=== PATIENT | male | born 1985 | race Two or more races ===

== ENCOUNTER 2024-11-14 03:19 | Inpatient (IN) | payer MEDICAID, OTHER ==
[~2024-11-14] VITALS: Ht 184.2 cm; Wt 131.0 kg
--- NOTE | 2024-11-14 03:51 | ED.PDOC ---
Musculoskeletal HPI Comments 38-year-old male presents to ER with complaints of left leg pain x3 days. Patient reports he developed sudden of pain/swelling/redness to left leg with associated chills 3 days ago. He reports 7/10 pain to left lower leg without radiation. Denies use of medications for current symptoms presents to ER ambulatory on arrival, with steady gait, in no distress with extensive swelling/erythema/TTP noted to left lower leg. Denies fever, shortness of b reath, chest pain, skin drainage, falls/injury or any further symptoms/complaints Chief Complaint: Lower Extremity Time Seen by MD: 03:38 Primary Care Provider: UNKNOWN Reviewed Notes: Nurses Notes, Medications, Allergies Allergies: Coded Allergies: NO KNOWN ALLERGIES (Unverified , 11/14/24) Information Source: Patient Mode of Arrival: Ambulatory Last Tetanus: Unknown Past Medical History PAST MEDICAL HISTORY: Denies Surgical History (Other): Left arm surgery Family History Family History: Unknown Social History Smoker: Non-Smoker Alcohol: Occasionally Drugs: Marijuana Lives In: Home Constitutional: denies: chills, diaphoresis, fatigue, fever, malaise, sweats, weakness, others EENTM: denies: blurred vision, double vision, ear bleeding, ear discharge, ear drainage, ear pain, ear ringing, eye pain, eye redness, hearing loss, mouth pain, mouth swelling, nasal discharge, nose bleeding, nose congestion, nose pain, photophobia, tearing, throat pain, throat swelling, voice changes, others Respiratory: denies: cough, hemoptysis, orthopnea, SOB at rest, shortness of breath, SOB with excertion, stridor, wheezing, others Cardiovascular: denies: chest pain, dizzy spells, diaphoresis, Dyspnea on exertion, edema, irregular heart beat, left arm pain, lightheadedness, palpitations, PND, syncope, others Gastrointestinal: denies: abdomen distended, abdominal pain, blood streaked bowels, constipated, diarrhea, dysphagia, difficulty swallowing, hematemesis, melena, nausea, poor appetite, poor fluid intake, rectal bleeding, rectal pain, vomiting, others Genitourinary: denies: burning, dysuria, flank pain, frequency, hematuria, incontinence, penile discharge, penile sore, pain, testicle pain, testicle swelling, urgency, others Neurological: denies: dizziness, fainting, headache, left sided numbness, left sided weakness, numbness, paresthesia, pre-existing deficit, right sided numbness, right sided weakness, seizure, speech problems, tingling, tremors, weakness, others Musculoskeletal: denies: back pain, gout, joint pain, joint swelling, muscle pain, muscle stiffness, neck pain, others Integumetry: reports: others (As stated in HPI) Allergic/Immunocompromised: denies: Difficulty Healing, Frequent Infections, Hives, Itching, others Hematologic/Lymphatic: denies: anemia, blood clots, easy bleeding, easy bruising, swollen glands, others Endocrine: denies: excessive hunger, excessive sweating, excessive thirst, excessive urination, flushing, intolerance to cold, intolerance to heat, unexplained weight gain, unexplained weight loss, others Psychiatric: denies: anxiety, bipolar disorder, depression, hopeless, panic disorder, schizophrenia, sleepless, suicidal, others Physical Exam General Appearance: No Apparent Distress, Obese HEENT: PERRL/EOMI Neck: Full Range of Motion, Non-Tender, Normal Respiratory: Chest Non-Tender, Lungs Clear, No Accessory Muscle Use, No Respiratory Distress, Normal Breath Sounds Cardiovascular: No Murmur, No Gallop, Regular Rate/Rhythm Breast Exam: Deferred Gastrointestinal: NOT DONE Genitalia: Deferred Pelvic: Deferred Rectal: Deferred Extremities: Calf tenderness (TTP/swelling/erythema noted to left calf), Normal capillary refill, Normal range of motion Neurologic: Alert, No Motor Deficits, Normal Affect, Normal Mood, No Sensory Deficits Cerebellar Function: Normal Reflexes: Normal Skin: Dry, Warm, Other (Extensive swelling/erythema/TTP/increased warmth noted to left lower leg. No fluctuance/drainage noted) Peripheral Pulses: 2+ dorsalis pedis (R), 2+ dorsalis pedis (L), 2+ Radial (R), 2+ Radial (L), 2+ Brachial (R), 2+ Brachial (L) Lymphatic: No Adenopathy Was a procedure done? Was a procedure done?: No Sedation Sedation?: No Differential Diagnosis EXT Differential Diagnosis: Deep Vein Thrombosis, Septic, Neurovascular injury X-Ray, Labs, Meds, VS Vital Signs Date Time Temp Pulse Resp B/P (MAP) Pulse Ox O2 Delivery O2 Flow Rate FiO2 11/14/24 06:01 98.7 80 14 154/91 (112) 98 98.7 11/14/24 04:05 Room Air* 0 21 11/14/24 03:30 98.9 87 14 144/98 (113) 97 98.9 Lab Test 11/14/24 03:47 Range/Units White Blood Count 13.2 H 4.4-10.8 10^3/uL Red Blood Count 5.06 4.5-5.90 10^6/uL Hemoglobin 16.4 13.5-17.5 g/dL Hematocrit 46.1 41.0-53.0 % Mean Corpuscular Volume 91.2 80.0-100.0 fL Mean Corpuscular Hemoglobin 32.4 H 28.0-32.0 pg Mean Corpuscular Hemoglobin Concent 35.5 32.0-36.0 g/dL Red Cell Distribution Width 13.5 11.8-14.3 % Platelet Count 153 140-450 10^3/uL Mean Platelet Volume 9.4 6.9-10.8 fL Neutrophils (%) (Auto) 67.7 37.0-80.0 % Lymphocytes (%) (Auto) 20.0 10.0-50.0 % Monocytes (%) (Auto) 10.6 0.0-12.0 % Eosinophils (%) (Auto) 1.3 0.0-7.0 % Basophils (%) (Auto) 0.4 0.0-2.0 % Neutrophils # (Auto) 8.9 H 1.6-8.6 10 ^3/uL Lymphocytes # (Auto) 2.6 0.4-5.4 10 ^3/uL Monocytes # (Auto) 1.4 H 0-1.3 10 ^3/uL Eosinophils # (Auto) 0.2 0-0.8 10 ^3/uL Basophils # (Auto) 0.1 0-0.2 10 ^3/uL Nucleated Red Blood Cells 0.1 % D-Dimer, Quantitative 0.77 H 0.0-0.49 mg/L FEU Sodium Level 137 136-145 mmol/L Potassium Level 4.0 3.5-5.1 mmol/L Chloride Level 106 98-107 mmol/L Carbon Dioxide Level 25 20-31 mmol/L Anion Gap 6 5-15 Blood Urea Nitrogen 16 9-23 mg/dL Creatinine 0.96 0.700-1.30 mg/dL Glomerular Filtration Rate Calc 104 >90 mL/min BUN/Creatinine Ratio 16.7 10.0-20.0 Serum Glucose 147 H 74-106 mg/dL Lactic Acid Level 1.9 0.4-2.0 mmol/L Calcium Level 9.7 8.7-10.4 mg/dL Current Medications Medications (Trade) Dose Ordered Sig/Leslie Route Start Time Stop Time Status Last Admin Clindamycin Phosphate 50 ml @ 50 mls/hr ONCE ONCE IV 11/14/24 03:45 11/14/24 04:44 DC 11/14/24 04:02 Ceftriaxone Sodium 50 ml @ 100 mls/hr ONCE ONCE IV 11/14/24 03:45 11/14/24 04:14 DC 11/14/24 03:57 Diphtheria/ Tetanus/Acell Pertussis (Boostrix T-Dap) 0.5 ml ONCE ONCE IM 11/14/24 03:45 11/14/24 03:49 DC 11/14/24 03:58 PATIENT: ELVA COHN ACCT: [id number] UNIT: [id number] : 1985 LOC: ER ROOM / BED: / AGE / SEX: 38 / M ADM STATUS: REG ER SERVICE [id number] ORDERING PHYSICIAN: SWETA TERRY PROCEDURE(s): LLDVT - LT Lower DVT REASON: left leg pain ORDER NUMBER(s): [id number], ACCESSION NUMBER(s): [id number] Left lower extremity venous duplex Clinical History: left leg pain Comparison: None Technique: Duplex Doppler evaluation of the deep venous system of the left lower extremity from the common femoral vein to the popliteal vein including color Doppler and spectral/pulsed waveform analysis was performed. Findings: The common femoral vein demonstrates appropriate compressibility and waveform variability. There is compressibility/patency of the great saphenous vein at the proximal thigh. The femoral vein demonstrates appropriate compressibility and waveform variability. The deep femoral vein demonstrates appropriate compressibility and waveform variability. The popliteal vein demonstrates appropriate compressibility and waveform variability. There is normal compressibility at the tibioperoneal trunk. Impression: No left femoropopliteal venous thrombosis. Nonspecific prominent lymph node in the left groin measures 1.3 cm. ATED BY: ALON WALLER MD DICTATED DATE/TIME: 11/14/24529 SIGNED BY: ALON WALLER MD SIGNED DATE/TIME: 11/14/24529 CC: CBC reviewed - WBC 13.2 BMP reviewed without any significant abnormalities Lactic acid reviewed - normal Hep-Lock IV ordered Clindamycin 900 mg IV ordered Rocephin 1 g IV ordered Tdap 0.5 mL IM ordered D-dimer reviewed .77 Left lower DVT left lower ultrasound reviewed Patient verbalized understanding and agreeable with current plan of care Patient presents with extensive swelling/erythema/TTP noted to left lower extremity Patient admitted to hospitalist for cellulitis of left lower extremity and need for IV antibiotics Images Reviewed?: Images reviewed and evaluated by me Time of 1ST Reevaluation: 03:42 Reevaluation 1ST: N/A Patient Education/Counseling: Diagnosis, Treatment, Prognosis, Need For Follow Up Family Education/Counseling: No Family Present Sepsis Sepsis Reasesment Focused Exam Orders: Laboratory Tests 11/14/24 03:47: Lactic Acid Level 1.9 Departure 1 Departure Time of Disposition: 05:34 Impression: Primary Impression: Cellulitis of left lower extremity Disposition: 09 ADMITTED INPATIENT Condition: Stable Discharged With: Self Critical Care Note Critical Care Time?: No Stability Stability form required: No Heart Score Heart Score: Heart Score Response (Comments) Value History N/A 0 EKG N/A 0 Age N/A 0 Risk Factors N/A 0 Troponin N/A 0 Total 0 SWETA TERRY Nov 14, 2024 03:50
[2024-11-14] MEDS: cefTRIAXone 1GM/50ML D5W 50 ML IV ONE (03:57)
[2024-11-14] MEDS: TETANUS-DIPTH-ACEL PERTUSSIS 0.5ML SYR Tdap IM ONE (03:58)
[2024-11-14] MEDS: CLINDAMYCIN 900MG IV 50 ML IV ONE (04:02)
[2024-11-14 04:17] LABS: Hematocrit 46.1 % (41.0-53.0); Hemoglobin 16.4 g/dL (13.5-17.5); Mean Corpuscular Hemoglobin 32.4 pg (28.0-32.0); Mean Corpuscular Volume 91.2 fL (80.0-100.0); Nucleated Red Blood Cells % 0.1 %
[2024-11-14 04:31] LABS: Chloride 106 mmol/L (98-107); Potassium 4.0 mmol/L (3.5-5.1); Sodium 137 mmol/L (136-145)
[2024-11-14 04:32] LABS: Anion Gap 6 (5-15); Calcium 9.7 mg/dL (8.7-10.4); Carbon Dioxide 25 mmol/L (20-31)
[2024-11-14 04:37] LABS: BUN/Creatinine Ratio 16.7 (10.0-20.0); Blood Urea Nitrogen 16 mg/dL (9-23)
[2024-11-14 04:48] LABS: Glucose 147 mg/dL (74-106)
--- NOTE | 2024-11-14 05:32 | DVH ---
Left lower extremity venous duplex Clinical History: left leg pain Comparison: None Technique: Duplex Doppler evaluation of the deep venous system of the left lower extremity from the common femor al vein to the popliteal vein including color Doppler and spectral/pulsed waveform analysis was perfo rmed. Findings: The common femoral vein demonstrates appropriate compressibility and waveform variability. There is compressibility/patency of the great saphenous vein at the proximal thigh. The femoral vein demonstrates appropriate compressibility and waveform variability. The deep femoral vein demonstrates appropriate compressibility and waveform variability. The popliteal vein demonstrates appropriate compressibility and waveform variability. There is normal compressibility at the tibioperoneal trunk. Impression: No left femoropopliteal venous thrombosis. Nonspecific prominent lymph node in the left groin measures 1.3 cm.
--- NOTE | 2024-11-14 07:00 | DVHHP2 ---
History of Present Illness Reason for Visit: left leg pain History of Present Illness 38-year-old male no past medical history surgical history left-hand surgery chief complaint patient comes in with left leg pain that has been going on for three days. Patient states since Wednesday he has had some redness did develop he has not seen his primary medical doctor in regards to his redness he has not been prescribed any medications. He did state he has some chills on Wednesday which he felt he had a fever with self-resolved he currently denies any chest pain no shortness with the breath patient denies any recent falling injury. When evaluating patient's labs and imaging from the ED white count was 13.2 othe rwise CBC was unremarkable CMP was unremarkable lactate was 1.9 D-dimer was 0.77 without any shortness of the breath ultrasound was negative for DVT patient was given tetanus ceftriaxone and clindamycin in the ED. With these findings we will admit patient for IV antibiotics Past Medical History Denies medical history Past Surgical History Left-hand surgery Family History Reviewed, non-contributory to the management of this case. Past Social History Patient does admit to drinking daily 3-4 beers everyday last drink was Wednesday he does smoke marijuana occasionally he has been denies any drugs use Review of Systems Constitutional: No: Fever, Chills, Sweats, Weakness, Malaise, Other Eyes: No: Pain, Vision change, Conjunctivae inflammation, Eyelid inflammation, Other, Redness ENT: No: Ear pain, Ear discharge, Nose pain, Nose discharge, Nose congestion, Mouth pain, Mouth swelling, Throat pain, Throat swelling, Other Respiratory: No: Cough, Dry, Shortness of breath, SOB with excertion, Wheezing, Hemoptysis, Pleuritic Pain, Sputum, Wheezing, Other Cardiovascular: No: Chest Pain, Palpitations, Orthopnea, Paroxysmal Noc. Dyspnea, Edema, Lt Headedness, Other Gastrointestinal: No: Nausea, Vomiting, Abdominal Pain, Diarrhea, Constipation, Melena, Hematochezia, Other Genitourinary: No Dysuria, No Frequency, No Incontinence, No Hematuria, No Retention, No Other Musculoskeletal: leg pain; No: other, neck pain, shoulder pain, arm pain, back pain, hand pain, foot pain Skin: No: Rash, Lesions, Jaundice, Bruising, Other Neurological: No: Weakness, Numbness, Incoordination, Change in speech, Con fusion, Seizures, Other Allergies: Coded Allergies: NO KNOWN ALLERGIES (Unverified , 11/14/24) Exam Vital Signs Vital Signs Date Time Temp Pulse Resp B/P (MAP) Pulse Ox O2 Delivery O2 Flow Rate FiO2 11/14/24 06:01 98.7 80 14 154/91 (112) 98 98.7 11/14/24 04:05 Room Air* 0 21 General Appearance: Alert, Oriented X3, Cooperative, No acute distress HEENT: Atraumatic, PERRLA, EOMI, Mucous membr. moist/pink Respiratory: Clear to auscultation, Normal air movement Cardiovascular: Regular rate, Normal S1, Normal S2, No murmurs Abdominal: Normal bowel sounds, Soft, No tenderness, No hepatospenomegaly, No masses Extremities: No clubbing, No cyanosis, No edema, Other (left lower leg with some swelling and erythema no exudates, compartment soft nvi +silt no open wound ) Skin: No rashes, No breakdown, No significant lesion Neuro: Normal gait, Normal speech, Strength at 5/5 X4 ext, Normal tone, Sensation intact, Cranial nerves 3-12 NL Psych/Mental Status: Mental status NL, Mood NL Labs/Xrays Ultrasound negative for DVT I reviewed labs, imaging CT scan abdomen pelvis, EKG and all diagnostic studies on this patient from ED records and the medical chart Labs Test 11/14/24 03:47 Range/Units White Blood Count 13.2 H 4.4-10.8 10^3/uL Red Blood Count 5.06 4.5-5.90 10^6/uL Hemoglobin 16.4 13.5-17.5 g/dL Hematocrit 46.1 41.0-53.0 % Mean Corpuscular Volume 91.2 80.0-100.0 fL Mean Corpuscular Hemoglobin 32.4 H 28.0-32.0 pg Mean Corpuscular Hemoglobin Concent 35.5 32.0-36.0 g/dL Red Cell Distribution Width 13.5 11.8-14.3 % Platelet Count 153 140-450 10^3/uL Mean Platelet Volume 9.4 6.9-10.8 fL Neutrophils (%) (Auto) 67.7 37.0-80.0 % Lymphocytes (%) (Auto) 20.0 10.0-50.0 % Monocytes (%) (Auto) 10.6 0.0-12.0 % Eosinophils (%) (Auto) 1.3 0.0-7.0 % Basophils (%) (Auto) 0.4 0.0-2.0 % Neutrophils # (Auto) 8.9 H 1.6-8.6 10 ^3/uL Lymphocytes # (Auto) 2.6 0.4-5.4 10 ^3/uL Monocytes # (Auto) 1.4 H 0-1.3 10 ^3/uL Eosinophils # (Auto) 0.2 0-0.8 10 ^3/uL Basophils # (Auto) 0.1 0-0.2 10 ^3/uL Nucleated Red Blood Cells 0.1 % D-Dimer, Quantitative 0.77 H 0.0-0.49 mg/L FEU Sodium Level 137 136-145 mmol/L Potassium Level 4.0 3.5-5.1 mmol/L Chloride Level 106 98-107 mmol/L Carbon Dioxide Level 25 20-31 mmol/L Anion Gap 6 5-15 Blood Urea Nitrogen 16 9-23 mg/dL Creatinine 0.96 0.700-1.30 mg/dL Glomerular Filtration Rate Calc 104 >90 mL/min BUN/Creatinine Ratio 16.7 10.0-20.0 Serum Glucose 147 H 74-106 mg/dL Lactic Acid Level 1.9 0.4-2.0 mmol/L Calcium Level 9.7 8.7-10.4 mg/dL SEPSIS Sepsis Screen Date sepsis recognized/suspect: Nov 14, 2024 Time Sepsis recognized/suspect: 329 Recent Procedure: No On Antibiotic Therapy: No Respiratory Rate >20: No Heart Rate >90: No Temp<36 C (96.8 F) or >38.3 C: No SBP <90 or MAP <65 mmHG: No New Acute Mental Status Change: No Is the patient on CPAP, BIPAP,: No Physician Orders Heplock Iv (11/14/24 ) Blood Culture (11/14/24 03:36) Lt Lower Dvt (11/14/24 04:42) Vital Signs Date Time Temp Pulse Resp B/P (MAP) Pulse Ox O2 Delivery O2 Flow Rate FiO2 11/14/24 06:01 98.7 80 14 154/91 (112) 98 98.7 11/14/24 04:05 Room Air* 0 21 11/14/24 03:30 98.9 87 14 144/98 (113) 97 98.9 Laboratory Tests Test 11/14/24 03:47 Lactic Acid Level 1.9 mmol/L (0.4-2.0) White Blood Count 13.2 10^3/uL (4.4-10.8) H Medications Medications Dose Ordered Sig/Leslie Route Start Time Stop Time Status Last Admin Dose Admin Ceftriaxone Sodium 50 ml @ 100 mls/hr ONCE ONCE IV 11/14/24 03:45 11/14/24 04:14 DC 11/14/24 03:57 100 MLS/HR Clindamycin Phosphate 50 ml @ 50 mls/hr ONCE ONCE IV 11/14/24 03:45 11/14/24 04:44 DC 11/14/24 04:02 50 MLS/HR Diphtheria/ Tetanus/Acell Pertussis 0.5 ml ONCE ONCE IM 11/14/24 03:45 11/14/24 03:49 DC 11/14/24 03:58 0.5 ML Assessment/Plan Assessment/Plan acute left leg cellulitis without abscess us negative for dvt cont ceftriaxone ordered morphine as needed for pain elevation to help with swelling acute leukocytosis likely from cellulitis ordered ceftriaxone acute elevation in ddimer likely from infection not likely pe or dvt cont antibiotics for now etoh abuse last drink Wednesday drinks daily no s/s of withdrawals ciwa as needed sw for resources fen/ppx diet ivf no gi ppx since no hx of gerds or gi bleed heparin for now plan admit to medicine for antibiotic treatment Plan discussed with: Patient Date of Service: Nov 14, 2024 Billing Provider: IRINEO TABOR DNP Common Visit Codes: [id number] INP/OBS CARE (HIGH) IRINEO TABOR DNP Nov 14, 2024 07:00
[2024-11-14] MEDS ORDERED: ONDANSETRON HCL 4 MG/2 ML VIAL IV PRN (08:30)
[2024-11-14] MEDS ORDERED: NITROGLYCERIN 0.4 MG SL TAB SL PRN (08:30)
[2024-11-14] MEDS ORDERED: DOCUSATE SOD 100 MG CAP PO PRN (08:30)
[2024-11-14] MEDS ORDERED: MORPHINE SULFATE INJ 2 MG/ml SYRG IV PRN (08:30)
[2024-11-14 08:52] VITALS: RESP 18
[2024-11-14 09:02] VITALS: BP 136/83; PULSE 81; RESP 24; TEMP 98.1; O2SAT 97
[2024-11-14] MEDS: ENOXAPARIN SOD 40 MG/0.4 ML SYRINGE SC SCH (12:46)
[2024-11-14] MEDS: cefTRIAXone 1GM/50ML D5W 50 ML IV SCH (12:47)
[2024-11-14] MEDS: SODIUM CHLORIDE 0.9% 1,000 ML IV SCH (12:47)
[2024-11-14 13:25] VITALS: BP 150/91; PULSE 86; TEMP 98.8; O2SAT 97
[2024-11-14 16:09] VITALS: BP 132/98; PULSE 90; RESP 19; TEMP 97.3; O2SAT 98
[2024-11-14 20:00] VITALS: PULSE 85; RESP 16; O2SAT 98
[2024-11-14 21:00] VITALS: BP 130/83; PULSE 85; RESP 16; TEMP 99.3; O2SAT 98
[2024-11-15] VITALS (8 sets, daily range): BP systolic 124–143; BP diastolic 81–94; PULSE 64–85; RESP 14–18; TEMP 97.7–98.9; O2SAT 98–99
[2024-11-15 05:42] LABS: Hematocrit 45.1 % (41.0-53.0); Hemoglobin 15.8 g/dL (13.5-17.5); Mean Corpuscular Hemoglobin 31.8 pg (28.0-32.0); Mean Corpuscular Volume 90.6 fL (80.0-100.0); Nucleated Red Blood Cells % 0.1 %
[2024-11-15 06:00] LABS: Albumin 4.2 g/dL (3.2-4.8); Alkaline Phosphatase 71 U/L (46-116); Anion Gap 6 (5-15); BUN/Creatinine Ratio 11.1 (10.0-20.0); Blood Urea Nitrogen 10 mg/dL (9-23); Calcium 9.1 mg/dL (8.7-10.4); Carbon Dioxide 27 mmol/L (20-31); Chloride 106 mmol/L (98-107); Potassium 4.3 mmol/L (3.5-5.1); Sodium 139 mmol/L (136-145); Total Protein 6.9 g/dL (5.7-8.2)
[2024-11-15 06:01] LABS: Alanine Aminotransferase 47 U/L (7-40); Bilirubin, Total 0.4 mg/dL (0.2-1.0); Glucose 136 mg/dL (74-106)
--- NOTE | 2024-11-15 17:03 | DVHPN2 ---
Subjective left leg cellulitis improving Reviewed: H&P, Labs Changes from previous H/P or p: No Changes Eyes: No Pain, No Vision change, No Conjunctivae inflammation, No Eyelid inflammation, No Other, No Redness ENT: No Ear pain, No Ear discharge, No Nose pain, No Nose discharge, No Nose congestion, No Mouth pain, No Mouth swelling, No Throat pain, No Throat swelling, No Other Cardiovascular: No Chest Pain, No Palpitations, No Orthopnea, No Paroxysmal Noc. Dyspnea, No Edema, No Lt Headedness, No Other Respiratory: No Cough, No Dry, No Shortness of breath, No SOB with excertion, No Wheezing, No Hemoptysis, No Pleuritic Pain, No Sputum, No Other Gastrointestinal: No Nausea, No Vomiting, No Abdominal Pain, No Diarrhea, No Constipation, No Melena, No Hematochezia, No Other Genitourinary: No Dysuria, No Frequency, No Incontinence, No Hematuria, No Retention, No Other Musculoskeletal: No other, No neck pain, No shoulder pain, No arm pain, No back pain, No hand pain; leg pain; No foot pain Skin: No Rash, No Lesions, No Jaundice, No Bruising, No Other Objective Vitals Vital Signs Date Time Temp Pulse Resp B/P (MAP) Pulse Ox O2 Delivery O2 Flow Rate FiO2 11/15/24 13:00 98.3 68 18 136/86 (103) 98 98.3 11/14/24 20:00 Room Air* 0 21 Intake/Output Intake and Output 11/15/24 07:00 Intake Total 691 ml Balance 691 ml Intake Oral 691 ml # Voids 1 General Appearance: Alert, Oriented X3 Cardiovascular: Regular rate, Normal S1, Normal S2 Medications Current Medications Medications Dose Ordered Sig/Leslie Route Start Time Stop Time Status Last Admin Dose Admin Sodium Chloride 1,000 ml @ 120 mls/hr Q8H20M IV 11/14/24 08:30 11/15/24 01:29 120 MLS/HR Ondansetron HCl 4 mg Q4HP PRN IV 11/14/24 08:30 Docusate Sodium 100 mg BIDPRN PRN PO 11/14/24 08:30 Enoxaparin Sodium 40 mg DAILY SC 11/14/24 10:00 11/15/24 10:26 40 MG Morphine Sulfate 2 mg Q4HPRN PRN IV 11/14/24 08:30 Nitroglycerin 0.4 mg Q5MINP PRN SL 11/14/24 08:30 Ceftriaxone Sodium 50 ml @ 100 mls/hr DAILY@09 IV 11/14/24 09:00 11/15/24 10:26 100 MLS/HR Laboratory Results Laboratory Tests 11/15/24 05:18 Chemistry Test 11/15/24 05:18 Albumin 4.2 g/dL (3.2-4.8) Calcium Level 9.1 mg/dL (8.7-10.4) Total Protein 6.9 g/dL (5.7-8.2) LFT Test 11/15/24 05:18 Alanine Aminotransferase (ALT) 47 U/L (7-40) H Alkaline Phosphatase 71 U/L (46-116) Aspartate Amino Transferase (AST) 24 U/L (13-40) Total Bilirubin 0.4 mg/dL (0.2-1.0) HgA1c, TSH Test 11/15/24 05:18 Hemoglobin A1c 5.7 % A1C (<5.7) Microbiology Microbiology Date/Time Source Procedure Growth Status 11/14/24 03:47 Blood Blood Culture - Preliminary NO GROWTH AFTER 24 HOURS OF INCUBATION. Resulted Assessment/Plan Assessment/Plan acute left leg cellulitis without abscess us negative for dvt cont ceftriaxone ordered morphine as needed for pain elevation to help with swelling acute leukocytosis likely from cellulitis ordered ceftriaxone acute elevation in ddimer likely from infection not likely pe or dvt cont antibiotics for now etoh abuse last drink Wednesday drinks daily no s/s of withdrawals ciwa as needed sw for resources fen/ppx diet ivf no gi ppx since no hx of gerds or gi bleed heparin for now Dispo: Possible dc tomorrow Plan discussed with: Patient Date of Service: Nov 15, 2024 Billing Provider: MATT FOSTER MD Common Visit Codes: [id number] INP/OBS CARE(HIGH) MATT FOSTER MD Nov 15, 2024 17:03
[2024-11-15] MEDS ORDERED: VANCOMYCIN PER PHARMACY 0 MG IV SCH (22:45)
[2024-11-16] VITALS (8 sets, daily range): BP systolic 123–139; BP diastolic 78–93; PULSE 59–100; RESP 15–19; TEMP 97.4–98.4; O2SAT 96–99
[2024-11-16] MEDS: VANCOMYCIN 1.25GM/250ML 250 ML IV SCH (11:11)
--- NOTE | 2024-11-16 23:21 | DVHPN2 ---
Subjective left leg cellulitis improving Reviewed: H&P, Labs Changes from previous H/P or p: No Changes Eyes: No Pain, No Vision change, No Conjunctivae inflammation, No Eyelid inflammation, No Other, No Redness ENT: No Ear pain, No Ear discharge, No Nose pain, No Nose discharge, No Nose congestion, No Mouth pain, No Mouth swelling, No Throat pain, No Throat swelling, No Other Cardiovascular: No Chest Pain, No Palpitations, No Orthopnea, No Paroxysmal Noc. Dyspnea, No Edema, No Lt Headedness, No Other Respiratory: No Cough, No Dry, No Shortness of breath, No SOB with excertion, No Wheezing, No Hemoptysis, No Pleuritic Pain, No Sputum, No Other Gastrointestinal: No Nausea, No Vomiting, No Abdominal Pain, No Diarrhea, No Constipation, No Melena, No Hematochezia, No Other Genitourinary: No Dysuria, No Frequency, No Incontinence, No Hematuria, No Retention, No Other Musculoskeletal: No other, No neck pain, No shoulder pain, No arm pain, No back pain, No hand pain; leg pain; No foot pain Skin: No Rash, No Lesions, No Jaundice, No Bruising, No Other Objective Vitals Vital Signs Date Time Temp Pulse Resp B/P (MAP) Pulse Ox O2 Delivery O2 Flow Rate FiO2 11/16/24 21:00 98.0 74 17 126/78 (94) 97 98.0 11/16/24 08:00 Room Air* 0 21 Intake/Output Intake and Output 11/16/24 07:00 Intake Total 2385 ml Balance 2385 ml Intake Oral 875 ml IV Total 1510 ml # Voids 5 # Bowel Movements 1 General Appearance: Alert, Oriented X3 Cardiovascular: Regular rate, Normal S1, Normal S2 Medications Current Medications Medications Dose Ordered Sig/Leslie Route Start Time Stop Time Status Last Admin Dose Admin Sodium Chloride 1,000 ml @ 120 mls/hr Q8H20M IV 11/14/24 08:30 11/16/24 19:50 120 MLS/HR Ondansetron HCl 4 mg Q4HP PRN IV 11/14/24 08:30 Docusate Sodium 100 mg BIDPRN PRN PO 11/14/24 08:30 Enoxaparin Sodium 40 mg DAILY SC 11/14/24 10:00 11/16/24 09:46 40 MG Morphine Sulfate 2 mg Q4HPRN PRN IV 11/14/24 08:30 Nitroglycerin 0.4 mg Q5MINP PRN SL 11/14/24 08:30 Ceftriaxone Sodium 50 ml @ 100 mls/hr DAILY@09 IV 11/14/24 09:00 11/16/24 09:46 100 MLS/HR Vancomycin HCl 0 ml @ 0 mls/hr UD IV 11/15/24 22:45 Vancomycin HCl 250 ml @ 200 mls/hr Q8H IV 11/16/24 10:00 11/16/24 17:45 200 MLS/HR Laboratory Results Laboratory Tests 11/15/24 05:18 Microbiology Microbiology Date/Time Source Procedure Growth Status 11/14/24 03:47 Blood Blood Culture - Preliminary Resulted Assessment/Plan Assessment/Plan acute left leg cellulitis without abscess us negative for dvt cont ceftriaxone ordered morphine as needed for pain elevation to help with swelling acute leukocytosis likely from cellulitis ordered ceftriaxone acute elevation in ddimer likely from infection not likely pe or dvt cont antibiotics for now etoh abuse last drink Wednesday drinks daily no s/s of withdrawals ciwa as needed sw for resources fen/ppx diet ivf no gi ppx since no hx of gerds or gi bleed heparin for now Dispo: Possible dc tomorrow Plan discussed with: Patient Date of Service: Nov 16, 2024 Billing Provider: MATT FOSTER MD Common Visit Codes: [id number] INP/OBS CARE(HIGH) MATT FOSTER MD Nov 16, 2024 23:21
[2024-11-17 01:00] VITALS: BP 133/91; PULSE 71; RESP 18; TEMP 97.9; O2SAT 98
[2024-11-17 05:00] VITALS: BP 131/90; PULSE 84; RESP 18; TEMP 97.6; O2SAT 98
[2024-11-17 08:00] VITALS: PULSE 60; RESP 18; O2SAT 98
[2024-11-17 09:00] VITALS: BP 122/89; PULSE 80; RESP 16; TEMP 98.6; O2SAT 99
[2024-11-17] MEDS ORDERED: AUG875T PO (11:52)
[2024-11-17 13:00] VITALS: BP 125/87; PULSE 71; RESP 16; TEMP 98; O2SAT 99
[2024-11-17 17:00] VITALS: BP 129/86; PULSE 80; RESP 18; TEMP 97.8; O2SAT 98
== END 2024-11-17 17:30 | disposition home or self-care (01) | DRG 383 ==
LOC: ER 03:19 → OVERFLOW 08:16 → EAST 15:45
PROVIDERS: ADMIT Hospitalist; ATTEND Hospitalist
DX: L03.116 Cellulitis of left lower limb (principal); F10.10 Alcohol abuse, uncomplicated; R79.89 Other specified abnormal findings of blood chemistry; Y90.9 Presence of alcohol in blood, level not specified
CPT/HCPCS: 36415; 80048; 80053; 80202; 82565; 83036; 83605; 85025; 85379; 87040; 90471; 90715; 93971; 96365; G0378; J3490

== ENCOUNTER 2025-01-03 15:35 | Inpatient (IN) | payer MEDICAID ==
[~2025-01-03] VITALS: Ht 184.2 cm; Wt 130.5 kg
[~2025-01-03 15:35] MED LIST: AUG875T PO
--- NOTE | 2025-01-03 16:19 | ED.PDOC ---
Musculoskeletal HPI Comments This is a 39 year old male presenting to the ED with chief complaint of left leg swelling. Patient reports that he has been experiencing spontaneous left lower leg swelling, redness, and pain with associated pain in left thigh since yesterday. Patient relays that he was diagnosed with cellulitis on 12/15 to the same leg, receiving IV and at home antibiotics after he was discharged. Patient denies any fever, chills, numbness, weakness, or open wound. Chief Complaint: Lower Extremity Time Seen by MD: 16:17 Primary Care Provider: UNKNOWN Reviewed Notes: Nurses Notes, Medications, Allergies Allergies: Coded Allergies: NO KNOWN ALLERGIES (Unverified , 11/14/24) Home Meds Active Scripts Diclofenac Potassium (Diclofenac Potassium) 50 Mg Tab, 1 TAB PO TIDP for 10 Days, #30 TAB Prov:LAKSHMI PORTER MD 01/03/25 Amoxicillin & Pot Clavulanate (AUGMENTIN TABLET) 875 Mg Tb, 875 MG PO BID for 10 Days, #20 TAB Prov:MATT FOSTER MD 11/17/24 Information Source: Patient Mode of Arrival: Ambulatory Location: Left Extremity Location: Leg Timing: Hours Prehospital treatment: None Severity: Moderate Able to Move Extremity: Yes Bear Weight: Fully Pain: Moderate Mechanism: Spontaneous Circumstances: Spontaneous Onset of Symptoms: Spontaneous Symptoms: Swelling, Pain, Erythema DVT Risk Factors: NONE Past Medical History Past Medical History (Other): Cellulitis of left leg 12/15 Surgical History: Denies all surgeries Family History Family History: Reviewed,noncontributory to illness, Unknown Social History Smoker: Non-Smoker Alcohol: Occasionally Drugs: Marijuana Lives In: Home Constitutional: denies: chills, diaphoresis, fatigue, fever, malaise, sweats, weakness, others EENTM: denies: blurred vision, double vision, ear bleeding, ear discharge, ear drainage, ear pain, ear ringing, eye pain, eye redness, hearing loss, mouth pain, mouth swelling, nasal discharge, nose bleeding, nose congestion, nose pain, photophobia, tearing, throat pain, throat swelling, voice changes, others Respiratory: denies: cough, hemoptysis, orthopnea, SOB at rest, shortness of breath, SOB with excertion, stridor, wheezing, others Cardiovascular: denies: chest pain, dizzy spells, diaphoresis, Dyspnea on exertion, edema, irregular heart beat, left arm pain, lightheadedness, palpitations, PND, syncope, others Gastrointestinal: denies: abdomen distended, abdominal pain, blood streaked bowels, constipated, diarrhea, dysphagia, difficulty swallowing, hematemesis, melena, nausea, poor appetite, poor fluid intake, rectal bleeding, rectal pain, vomiting, others Genitourinary: denies: burning, dysuria, flank pain, frequency, hematuria, incontinence, penile discharge, penile sore, pain, testicle pain, testicle swelling, urgency, others Neurological: denies: dizziness, fainting, headache, left sided numbness, left sided weakness, numbness, paresthesia, pre-existing deficit, right sided numbness, right sided weakness, seizure, speech problems, tingling, tremors, weakness, others Musculoskeletal: reports: others (Left lower leg swelling and redness); denies: back pain, gout, joint pain, joint swelling, muscle pain, muscle stiffness, neck pain Integumetry: denies: bruises, change in color, change in hair/nails, dryness, laceration, lesions, lumps, rash, wounds, others Allergic/Immunocompromised: denies: Difficulty Healing, Frequent Infections, Hives, Itching, others Hematologic/Lymphatic: denies: anemia, blood clots, easy bleeding, easy bruising, swollen glands, others Endocrine: denies: excessive hunger, excessive sweating, excessive thirst, excessive urination, flushing, intolerance to cold, intolerance to heat, unexplained weight gain, unexplained weight loss, others Psychiatric: denies: anxiety, bipolar disorder, depression, hopeless, panic disorder, schizophrenia, sleepless, suicidal, others All Other Systems: Reviewed and Negative Physical Exam General Appearance: Mild Distress, Normal HEENT: Normal ENT Inspection, PERRL/EOMI Neck: Full Range of Motion, Non-Tender, Normal, Normal Inspection Respiratory: Chest Non-Tender, Lungs Clear, No Accessory Muscle Use, No Respiratory Distress, Normal Breath Sounds Cardiovascular: No Edema, No JVD, No Murmur, No Gallop, Normal Peripheral Pulse s, Regular Rate/Rhythm Breast Exam: Deferred Gastrointestinal: No Organomegaly, Non Tender, No Pulsatile Mass, Normal Bowel Sounds, Soft Genitalia: Deferred Pelvic: Deferred Rectal: Deferred Extremities: Inflammation, Leg edema, No calf tenderness, Normal capillary refill, Normal inspection, Normal range of motion, Non-tender, No pedal edema, Swelling, Tender 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 Was a procedure done?: No Differential Diagnosis EXT Differential Diagnosis: Cellulitis, Deep Vein Thrombosis X-Ray, Labs, Meds, VS Vital Signs Date Time Temp Pulse Resp B/P (MAP) Pulse Ox O2 Delivery O2 Flow Rate FiO2 01/03/25 15:37 98.5 75 16 130/96 98 98.5 Lab Test 01/03/25 16:35 Range/Units White Blood Count 15.1 H 4.4-10.8 10^3/uL Red Blood Count 5.11 4.5-5.90 10^6/uL Hemoglobin 16.2 13.5-17.5 g/dL Hematocrit 46.1 41.0-53.0 % Mean Corpuscular Volume 90.3 80.0-100.0 fL Mean Corpuscular Hemoglobin 31.8 28.0-32.0 pg Mean Corpuscular Hemoglobin Concent 35.2 32.0-36.0 g/dL Red Cell Distribution Width 13.4 11.8-14.3 % Platelet Count 203 140-450 10^3/uL Mean Platelet Volume 9.5 6.9-10.8 fL Neutrophils (%) (Auto) 75.1 37.0-80.0 % Lymphocytes (%) (Auto) 16.0 10.0-50.0 % Monocytes (%) (Auto) 8.1 0.0-12.0 % Eosinophils (%) (Auto) 0.7 0.0-7.0 % Basophils (%) (Auto) 0.1 0.0-2.0 % Neutrophils # (Auto) 11.3 H 1.6-8.6 10 ^3/uL Lymphocytes # (Auto) 2.4 0.4-5.4 10 ^3/uL Monocytes # (Auto) 1.2 0-1.3 10 ^3/uL Eosinophils # (Auto) 0.1 0-0.8 10 ^3/uL Basophils # (Auto) 0 0-0.2 10 ^3/uL Nucleated Red Blood Cells 0.1 % D-Dimer, Quantitative 0.59 H 0.0-0.49 mg/L FEU Sodium Level 137 136-145 mmol/L Potassium Level 3.8 3.5-5.1 mmol/L Chloride Level 102 98-107 mmol/L Carbon Dioxide Level 28 20-31 mmol/L Anion Gap 7 5-15 Blood Urea Nitrogen 9 9-23 mg/dL Creatinine 0.97 0.700-1.30 mg/dL Glomerular Filtration Rate Calc 102 >90 mL/min BUN/Creatinine Ratio 9.3 L 10.0-20.0 Serum Glucose 107 H 74-106 mg/dL Calcium Level 9.2 8.7-10.4 mg/dL X-Ray, Labs, Meds, VS Comment Seen in the emergency department eventful patient came in because of sudden onset of pain to the left leg and followed by shortness of breath ultrasound shows no trouble in three CBC negative BNP negative D-dimer 0.91 EKG PENDING ULTRASOUND NO DVT LARGE LYMPH NODE IN THE INGUINAL AREA PATIENT WILL BE ADMITTED FOR FURTHER CARE Time of 1ST Reevaluation: 17:16 Reevaluation 1ST: Unchanged Time of 2ND Reevaluation: 17:02 Reevaluation 2ND: Improved Consultation: PCP Patient Education/Counseling: Diagnosis, Treatment, Prognosis, Need For Follow Up Family Education/Counseling: Diagnosis, Treatment, Prognosis, Need For Follow Up, No Family Present Departure 1 Departure Time of Disposition: 17:03 Impression: Primary Impression: Pain in left leg Additional Impression: Cellulitis of left leg without foot Ruled Out: DVT (deep venous thrombosis), Pulmonary embolism Disposition: 01 HOME / SELF CARE / HOMELESS Condition: Fair Additional Instructions: Local heat and follow up with your PCP Discharged With: Self Critical Care Note Critical Care Time?: No Stability Stability form required: Yes Heart Score Heart Score: Heart Score Response (Comments) Value History N/A 0 EKG N/A 0 Age <45 0 Risk Factors No known risk factors 0 Troponin N/A 0 Total 0 I personally scribed for LAKSHMI PORTER MD ([email or web address]) on 01/03/25 at 16:19. Electronically submitted by Eloy Nails ([email or web address]). LAKSHMI PORTER MD Jan 03, 2025 16:19
[2025-01-03] MEDS: SODIUM CHLORIDE 0.9% 1,000 ML IV ONE (16:30)
[2025-01-03 16:53] LABS: Hematocrit 46.1 % (41.0-53.0); Hemoglobin 16.2 g/dL (13.5-17.5); Mean Corpuscular Hemoglobin 31.8 pg (28.0-32.0); Mean Corpuscular Volume 90.3 fL (80.0-100.0); Nucleated Red Blood Cells % 0.1 %
[2025-01-03 17:00] LABS: Chloride 102 mmol/L (98-107); Potassium 3.8 mmol/L (3.5-5.1); Sodium 137 mmol/L (136-145)
[2025-01-03 17:01] LABS: Anion Gap 7 (5-15); Carbon Dioxide 28 mmol/L (20-31)
[2025-01-03 17:02] LABS: Calcium 9.2 mg/dL (8.7-10.4)
[2025-01-03] MEDS ORDERED: DICL50TA2 PO (17:06)
[2025-01-03 17:07] LABS: BUN/Creatinine Ratio 9.3 (10.0-20.0)
[2025-01-03 17:08] LABS: Blood Urea Nitrogen 9 mg/dL (9-23); Glucose 107 mg/dL (74-106)
--- NOTE | 2025-01-03 17:51 | DVH ---
CLINICAL HISTORY: DVT TECHNIQUE: Color and duplex doppler imagine of the left lower extremity veins was performed. Vessel c ompression if possible was also performed. COMPARISON: US LT LOWER DVT on DOS: 11/14/24 FINDINGS: Left common femoral vein: Normal compressibility and flow. Left superficial femoral vein: Normal compressibility and flow. Left popliteal vein: Normal compressibility and flow. Proximal calf veins are normally compressible. There is a 1.3 cm left inguinal lymph node. IMPRESSION: NO SONOGRAPHIC EVIDENCE FOR DEEP VENOUS THROMBOSIS IN THE LEFT LOWER EXTREMITY VEINS. MILDLY ENLARGED 1.3 CM LEFT INGUINAL LYMPH NODE.
[2025-01-03] MEDS ORDERED: ONDANSETRON HCL 4 MG/2 ML VIAL IV PRN (20:45)
[2025-01-03] MEDS ORDERED: TEMAZEPAM 15 MG CAP PO PRN (20:45)
[2025-01-03] MEDS ORDERED: ACETAMINOPHEN 325 MG TAB PO PRN (20:45)
[2025-01-03] MEDS ORDERED: HYDROcodone-ACET 5/325MG TAB PO PRN (20:45)
[2025-01-03 21:37] LABS: Lactic Acid w/Reflex 2.2 mmol/L (0.4-2.0)
--- NOTE | 2025-01-03 22:25 | DVHHP2 ---
History of Present Illness Reason for Visit: Left leg swelling History of Present Illness 39-year-old male presents for evaluation of left leg swelling. He states being treated for cellulitis of that same leg two weeks ago. He states two days ago his legs spontaneously became swollen again with redness and tenderness. Denies any fever or chills. No trauma to the area. Past Medical History Denies Past Surgical History Denies Family History Noncontributory Smoke: No ALCOHOL: occassional Drugs: Marijuana Lives: with Family Review of Systems Review of Systems Review of systems are currently negative otherwise addressed in HPI. Allergies: Coded Allergies: NO KNOWN ALLERGIES (Unverified , 11/14/24) Medications Current Medications Medications Dose Ordered Sig/Leslie Route Start Time Stop Time Status Last Admin Dose Admin Clindamycin Phosphate 50 ml @ 50 mls/hr Q8HR IV 01/03/25 22:00 Acetaminophen/ Hydrocodone Bitart 1 tab Q4HP PRN PO 01/03/25 20:45 Temazepam 15 mg QHSP PRN PO 01/03/25 20:45 Ondansetron HCl 4 mg Q4HP PRN IV 01/03/25 20:45 Enoxaparin Sodium 40 mg DAILY SC 01/04/25 10:00 Acetaminophen 650 mg Q6HP PRN PO 01/03/25 20:45 Exam Vital Signs Vital Signs Date Time Temp Pulse Resp B/P (MAP) Pulse Ox O2 Delivery O2 Flow Rate FiO2 01/03/25 18:15 98.0 84 18 132/68 (89) 99 98.0 Exam Gen: 39-year-old male in mild distress Skin: Warm, dry, normal color and texture, no rash. HEENT: Normocephalic atraumatic, mucous membranes moist and pink. Neck: Cervical and supraclavicular nodes normal without enlargement, trachea is midline, thyroid gland is normal without masses. Pulmonary: Clear to auscultation and percussion bilaterally. Cardiac: Regular rate and rhythm. No murmur Abdomen: Soft, nontender, nondistended, bowel sounds present all 4 quadrants, no guarding, no rigidity, no organomegaly. Extremities: No cyanosis, clubbing, left lower extremity erythema with warmth and tenderness Neuro: Cranial nerves II through XII grossly intact, normal affect and speech, no focal motor deficits. Labs/Xrays ORDERING PHYSICIAN: LAKSHMI PORTER MD PROCEDURE(s): LLDVT - LT Lower DVT REASON: DVT ORDER NUMBER(s): [id number], ACCESSION NUMBER(s): [id number] CLINICAL HISTORY: DVT TECHNIQUE: Color and duplex doppler imagine of the left lower extremity veins was performed. Vessel compression if possible was also performed. COMPARISON: US LT LOWER DVT on DOS: 11/14/24 FINDINGS: Left common femoral vein: Normal compressibility and flow. Left superficial femoral vein: Normal compressibility and flow. Left popliteal vein: Normal compressibility and flow. Proximal calf veins are normally compressible. There is a 1.3 cm left inguinal lymph node. IMPRESSION: NO SONOGRAPHIC EVIDENCE FOR DEEP VENOUS THROMBOSIS IN THE LEFT LOWER EXTREMITY VEINS. MILDLY ENLARGED 1.3 CM LEFT INGUINAL LYMPH NODE. Labs Test 01/03/25 20:43 01/03/25 16:35 Range/Units Lactic Acid Level 2.2 *H 0.4-2.0 mmol/L White Blood Count 15.1 H 4.4-10.8 10^3/uL Red Blood Count 5.11 4.5-5.90 10^6/uL Hemoglobin 16.2 13.5-17.5 g/dL Hematocrit 46.1 41.0-53.0 % Mean Corpuscular Volume 90.3 80.0-100.0 fL Mean Corpuscular Hemoglobin 31.8 28.0-32.0 pg Mean Corpuscular Hemoglobin Concent 35.2 32.0-36.0 g/dL Red Cell Distribution Width 13.4 11.8-14.3 % Platelet Count 203 140-450 10^3/uL Mean Platelet Volume 9.5 6.9-10.8 fL Neutrophils (%) (Auto) 75.1 37.0-80.0 % Lymphocytes (%) (Auto) 16.0 10.0-50.0 % Monocytes (%) (Auto) 8.1 0.0-12.0 % Eosinophils (%) (Auto) 0.7 0.0-7.0 % Basophils (%) (Auto) 0.1 0.0-2.0 % Neutrophils # (Auto) 11.3 H 1.6-8.6 10 ^3/uL Lymphocytes # (Auto) 2.4 0.4-5.4 10 ^3/uL Monocytes # (Auto) 1.2 0-1.3 10 ^3/uL Eosinophils # (Auto) 0.1 0-0.8 10 ^3/uL Basophils # (Auto) 0 0-0.2 10 ^3/uL Nucleated Red Blood Cells 0.1 % D-Dimer, Quantitative 0.59 H 0.0-0.49 mg/L FEU Sodium Level 137 136-145 mmol/L Potassium Level 3.8 3.5-5.1 mmol/L Chloride Level 102 98-107 mmol/L Carbon Dioxide Level 28 20-31 mmol/L Anion Gap 7 5-15 Blood Urea Nitrogen 9 9-23 mg/dL Creatinine 0.97 0.700-1.30 mg/dL Glomerular Filtration Rate Calc 102 >90 mL/min BUN/Creatinine Ratio 9.3 L 10.0-20.0 Serum Glucose 107 H 74-106 mg/dL Calcium Level 9.2 8.7-10.4 mg/dL SEPSIS Sepsis Screen Date sepsis recognized/suspect: Jan 03, 2025 Time Sepsis recognized/suspect: 1539 Recent Procedure: No On Antibiotic Therapy: No Respiratory Rate >20: No Heart Rate >90: No Temp<36 C (96.8 F) or >38.3 C: No SBP <90 or MAP <65 mmHG: No New Acute Mental Status Change: No Is the patient on CPAP, BIPAP,: No Physician Orders Heplock Iv (01/03/25 16:16) Sodium Chloride 0.9% (01/03/25 16:30) Lt Lower Dvt (01/03/25 17:15) Admit (01/03/25 20:00) Clindamycin 600mg Iv (Cleocin Iv) (01/03/25 22:00) Blood Culture (01/03/25 20:32) Basic Metabolic Panel (01/04/25 04:00) Hydrocodone-Acet 5/325mg Tab ([place] 32 (01/03/25 20:45) Enoxaparin Sodium (Lovenox) (01/04/25 10:00) Complete Blood Count (01/04/25 04:00) Cardiac Diet-2gna,Lofat,Lochol (01/04/25 Breakfast) Condition: Stable (01/03/25 20:32) Acetaminophen Tablet (Tylenol Tablet) (01/03/25 20:45) Bedrest With Bathroom Privileg (01/03/25 20:32) Temazepam (Restoril) (01/03/25 20:45) Ondansetron Hcl (Zofran) (01/03/25 20:45) Ceftriaxone Ivpb Rocephin (01/04/25 09:00) Vital Signs Date Time Temp Pulse Resp B/P (MAP) Pulse Ox O2 Delivery O2 Flow Rate FiO2 01/03/25 18:15 98.0 84 18 132/68 (89) 99 98.0 01/03/25 15:37 98.5 75 16 130/96 98 98.5 Laboratory Tests Test 01/03/25 16:35 01/03/25 20:43 White Blood Count 15.1 10^3/uL (4.4-10.8) H Lactic Acid Level 2.2 mmol/L (0.4-2.0) *H Medications Medications Dose Ordered Sig/Leslie Route Start Time Stop Time Status Last Admin Dose Admin Sodium Chloride 1,000 ml @ 150 mls/hr Q6H40M ONCE IV 01/03/25 16:30 01/03/25 23:09 01/03/25 16:30 150 MLS/HR Assessment/Plan Assessment/Plan Assessment Left lower extremity cellulitis Leukocytosis Morbid obesity Plan Admit the patient to [facility] to the hospitalist Rocephin/clindamycin Pain management Continue treatment per orders. Plan discussed with: Patient My Orders Orders - SHELLY DAVIS AGACNP Procedure Category Date Status Time Admit ADMIT 01/03/25 Transmitted 20:00 Clindamycin 600mg Iv PHA 01/03/25 In Process (Cleocin Iv) 22:00 Blood Culture HERBERT 01/03/25 In Process 20:32 Basic Metabolic Panel LAB 01/04/25 Verified 04:00 Hydrocodone-Acet PHA 01/03/25 In Process 5/325mg Tab ([place] 20:45 Enoxaparin Sodium PHA 01/04/25 In Process (Lovenox) 10:00 Complete Blood Count LAB 01/04/25 Verified 04:00 Cardiac DIET 01/04/25 Transmitted Diet-2gna,Lofat,Lochol Breakfast Condition: Stable HÉCTOR 01/03/25 In Process 20:32 Acetaminophen Tablet PHA 01/03/25 In Process (Tylenol Tablet) 20:45 Bedrest With Bathroom HÉCTOR 01/03/25 In Process Privileg 20:32 Temazepam (Restoril) PHA 01/03/25 In Process 20:45 Ondansetron Hcl PHA 01/03/25 In Process (Zofran) 20:45 Ceftriaxone Ivpb PHA 01/04/25 Transmitted Rocephin 09:00 Date of Service: Jan 03, 2025 Billing Provider: SHELLY DAVIS Common Visit Codes: [id number] INP/OBS CARE (HIGH) SHELLY DAVIS Jan 03, 2025 22:25
[2025-01-03 22:32] VITALS: PULSE 72; RESP 18; O2SAT 98
[2025-01-03] MEDS: KETOROLAC TROMETH 30 MG/ML 1ML VIAL IV ONE (23:06)
[2025-01-03 23:30] VITALS: BP 139/87; PULSE 76; RESP 18; TEMP 98.2; O2SAT 97
[2025-01-04] VITALS (8 sets, daily range): BP systolic 122–136; BP diastolic 75–88; PULSE 66–85; RESP 17–20; TEMP 97.9–98.5; O2SAT 98–99
[2025-01-04] MEDS: CLINDAMYCIN 600MG IV 50 ML IV SCH (00:18)
[2025-01-04 05:30] LABS: Hematocrit 44.4 % (41.0-53.0); Hemoglobin 15.5 g/dL (13.5-17.5); Mean Corpuscular Hemoglobin 31.8 pg (28.0-32.0); Mean Corpuscular Volume 91.3 fL (80.0-100.0); Nucleated Red Blood Cells % 0.1 %
[2025-01-04 05:46] LABS: Chloride 103 mmol/L (98-107); Potassium 4.1 mmol/L (3.5-5.1); Sodium 139 mmol/L (136-145)
[2025-01-04 05:47] LABS: Anion Gap 8 (5-15); Calcium 9.1 mg/dL (8.7-10.4); Carbon Dioxide 28 mmol/L (20-31)
[2025-01-04 05:52] LABS: BUN/Creatinine Ratio 11.5 (10.0-20.0); Blood Urea Nitrogen 10 mg/dL (9-23)
[2025-01-04 06:02] LABS: Glucose 131 mg/dL (74-106)
[2025-01-04] MEDS: ENOXAPARIN SOD 40 MG/0.4 ML SYRINGE SC SCH (11:30)
--- NOTE | 2025-01-04 12:35 | DVHPN2 ---
Reviewed: Care Plan, H&P, Labs, Medications, Previous Orders, Radiology Changes from previous H/P or p: No Changes Objective Vitals Vital Signs Date Time Temp Pulse Resp B/P (MAP) Pulse Ox O2 Delivery O2 Flow Rate FiO2 01/04/25 09:07 98.3 67 18 122/79 (93) 98 98.3 01/03/25 22:32 Room Air* 0 21 Intake/Output Intake and Output 01/04/25 07:00 Intake Total 200 ml Balance 200 ml Intake Oral 200 ml Medications Current Medications Medications Dose Ordered Sig/Leslie Route Start Time Stop Time Status Last Admin Dose Admin Clindamycin Phosphate 50 ml @ 50 mls/hr Q8HR IV 01/03/25 22:00 01/04/25 04:31 50 MLS/HR Acetaminophen/ Hydrocodone Bitart 1 tab Q4HP PRN PO 01/03/25 20:45 Temazepam 15 mg QHSP PRN PO 01/03/25 20:45 Ondansetron HCl 4 mg Q4HP PRN IV 01/03/25 20:45 Enoxaparin Sodium 40 mg DAILY SC 01/04/25 10:00 01/04/25 11:30 40 MG Acetaminophen 650 mg Q6HP PRN PO 01/03/25 20:45 Ceftriaxone Sodium 50 ml @ 100 mls/hr Q24H IV 01/04/25 23:00 Laboratory Results Laboratory Tests 01/04/25 04:42 Chemistry Test 01/03/25 16:35 01/04/25 04:42 Calcium Level 9.2 mg/dL (8.7-10.4) 9.1 mg/dL (8.7-10.4) Coagulation Test 01/03/25 16:35 D-Dimer, Quantitative 0.59 mg/L FEU (0.0-0.49) H Labs and/or images reviewed: Labs reviewed by me, Image(s) reviewed by me Assessment/Plan Assessment/Plan Sepsis secondary to cellulitis left lower extremity Cellulitis left lower extremity: Rocephin clindamycin Acute lactic acidosis Acute dehydration DVT left lower extremity ruled out CT left tib-fib ordered, 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
--- NOTE | 2025-01-04 15:18 | DVH ---
INDICATION: Recurrent cellulitis rule out underlying fracture COMPARISON: None TECHNIQUE: CT of the right was performed without contrast. Volume transverse images were obtained and reconstructed in multiple planes using bone and soft tissue algorithms. CONTRAST: None Radiation Dose Information: CT Dose: CTDI volume is 7.75 mGy. Dose-length product is 5.61 mGy*cm FINDINGS: The alignment is normal. The joint spaces are normal. There is no fracture, dislocation, or focal osseous lesions. Prominent bony exostosis off the posteri or aspect of the proximal tibia measuring 4.4 cm length 1.5 cm AP dimension The soft tissues are normal. IMPRESSION: 1. Prominent bony exostosis off the posterior aspect of the proximal tibia measuring 4.4 cm length 1. 5 cm AP , 2.4 cm in transverse dimension. dimension. This may be compressing the posterior vascular s tructures. Consider MRI for further evaluation.
[2025-01-05] VITALS (7 sets, daily range): BP systolic 124–137; BP diastolic 75–87; PULSE 59–82; RESP 17–20; TEMP 97.1–98.1; O2SAT 98–99
--- NOTE | 2025-01-05 08:46 | DVHPN2 ---
Reviewed: Care Plan, H&P, Labs, Medications, Previous Orders, Radiology Changes from previous H/P or p: No Changes Objective Vitals Vital Signs Date Time Temp Pulse Resp B/P (MAP) Pulse Ox O2 Delivery O2 Flow Rate FiO2 01/05/25 05:00 97.8 61 17 136/85 (102) 99 97.8 01/04/25 20:00 Room Air* 0 21 Intake/Output Intake and Output 01/05/25 07:00 Intake Total 2970 ml Balance 2970 ml Intake Oral 2820 ml IV Total 150 ml # Voids 3 Medications Current Medications Medications Dose Ordered Sig/Leslie Route Start Time Stop Time Status Last Admin Dose Admin Clindamycin Phosphate 50 ml @ 50 mls/hr Q8HR IV 01/03/25 22:00 01/05/25 06:08 50 MLS/HR Acetaminophen/ Hydrocodone Bitart 1 tab Q4HP PRN PO 01/03/25 20:45 Temazepam 15 mg QHSP PRN PO 01/03/25 20:45 Ondansetron HCl 4 mg Q4HP PRN IV 01/03/25 20:45 Enoxaparin Sodium 40 mg DAILY SC 01/04/25 10:00 01/04/25 11:30 40 MG Acetaminophen 650 mg Q6HP PRN PO 01/03/25 20:45 Ceftriaxone Sodium 50 ml @ 100 mls/hr Q24H IV 01/04/25 23:00 01/04/25 23:46 100 MLS/HR Laboratory Results Laboratory Tests 01/04/25 04:42 Microbiology Microbiology Date/Time Source Procedure Growth Status 01/04/25 05:00 Nose MRSA Screen - Final Complete 01/03/25 20:43 Blood Blood Culture - Preliminary NO GROWTH AFTER 24 HOURS OF INCUBATION. Resulted Labs and/or images reviewed: Labs reviewed by me, Image(s) reviewed by me Assessment/Plan Assessment/Plan Sepsis secondary to cellulitis left lower extremity Cellulitis left lower extremity: Rocephin clindamycin Acute lactic acidosis Acute dehydration DVT left lower extremity ruled out Exostosis 4 x 2 cm left proximal tib by CT: MRI ordered Plan discussed with: Patient My Orders Orders - CAIN SALINAS MD Procedure Category Date Status Time Ct L Tib Fib Wo CT 01/04/25 Resulted Contrast 12:47 Date of Service: Jan 05, 2025 Billing Provider: CAIN SALINAS MD Common Visit Codes: [id number] INP/OBS CARE(HIGH) CAIN SALINAS MD Jan 05, 2025 08:46
--- NOTE | 2025-01-05 13:25 | DVH ---
CLINICAL HISTORY: 39 years old, Male; Exostosis left proximal tibia by CT. TECHNIQUE: Multi sequence multi planar MRI images of the left lower leg were obtained without IV con trast. COMPARISON: CT CT L TIB FIB WO CONTRAST on DOS: 01/04/25 FINDINGS: No acute fracture or focal marrow contusion. Again seen is a focal exostosis along the pos terior cortex of the proximal tibial metadiaphysis with medullary and cortical continuity with the ad jacent tibia, consistent with a sessile osteochondroma, measuring up to 1.9 cm in AP dimension, 3.6 c m in transverse dimension, and 5.4 cm in craniocaudal dimension. The cartilaginous cap measures up to 0.5 cm in greatest thickness. The osteochondroma abuts and mildly displaces the adjacent soleus musc ulature. The musculature appears otherwise unremarkable. No evidence of muscle strain or tear. No sig nificant atrophy. There is nonspecific moderate subcutaneous edema in the left lower leg. IMPRESSION: 1. 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 No significant thicke cielo of the cartilaginous cap to suggest malignant transformation. 2. Additional findings as described above.
[2025-01-06] VITALS (7 sets, daily range): BP systolic 131–137; BP diastolic 70–91; PULSE 67–88; RESP 16–20; TEMP 97.6–98.8; O2SAT 96–100
--- NOTE | 2025-01-06 09:13 | DVHPN2 ---
Reviewed: Care Plan, H&P, Labs, Medications, Previous Orders, Radiology Changes from previous H/P or p: No Changes Objective Vitals Vital Signs Date Time Temp Pulse Resp B/P (MAP) Pulse Ox O2 Delivery O2 Flow Rate FiO2 01/06/25 09:05 97.8 68 18 133/87 (102) 98 97.8 01/05/25 20:00 Room Air* 0 21 Intake/Output Intake and Output 01/06/25 07:00 Intake Total 3540 ml Balance 3540 ml Intake Oral 3290 ml IV Total 250 ml # Voids 13 Medications Current Medications Medications Dose Ordered Sig/Leslie Route Start Time Stop Time Status Last Admin Dose Admin Clindamycin Phosphate 50 ml @ 50 mls/hr Q8HR IV 01/03/25 22:00 01/06/25 05:10 50 MLS/HR Acetaminophen/ Hydrocodone Bitart 1 tab Q4HP PRN PO 01/03/25 20:45 Temazepam 15 mg QHSP PRN PO 01/03/25 20:45 Ondansetron HCl 4 mg Q4HP PRN IV 01/03/25 20:45 Enoxaparin Sodium 40 mg DAILY SC 01/04/25 10:00 01/05/25 10:24 40 MG Acetaminophen 650 mg Q6HP PRN PO 01/03/25 20:45 Ceftriaxone Sodium 50 ml @ 100 mls/hr Q24H IV 01/04/25 23:00 01/05/25 23:45 100 MLS/HR Laboratory Results Laboratory Tests 01/04/25 04:42 Microbiology Microbiology Date/Time Source Procedure Growth Status 01/04/25 05:00 Nose MRSA Screen - Final Complete 01/03/25 20:43 Blood Blood Culture - Preliminary NO GROWTH AFTER 48 HOURS OF INCUBATION. 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 No significant thickening of the cartilaginous cap to suggest malignant transformation. Consult for orthopedic Dr Jacobs Plan discussed with: Patient Date of Service: Jan 06, 2025 Billing Provider: CAIN SALINAS MD Common Visit Codes: [id number] INP/OBS CARE(HIGH) CAIN SALINAS MD Jan 06, 2025 09:13
[2025-01-07] VITALS (9 sets, daily range): BP systolic 114–157; BP diastolic 55–97; PULSE 68–98; RESP 17–92; TEMP 97–98.7; O2SAT 92–97
[2025-01-07 06:14] LABS: Hematocrit 45.0 % (41.0-53.0); Hemoglobin 15.9 g/dL (13.5-17.5); Mean Corpuscular Hemoglobin 32.3 pg (28.0-32.0); Mean Corpuscular Volume 91.3 fL (80.0-100.0); Nucleated Red Blood Cells % 0.0 %
[2025-01-07 06:29] LABS: Albumin 4.4 g/dL (3.2-4.8); Alkaline Phosphatase 80 U/L (46-116); Anion Gap 9 (5-15); BUN/Creatinine Ratio 11.4 (10.0-20.0); Blood Urea Nitrogen 10 mg/dL (9-23); Calcium 9.3 mg/dL (8.7-10.4); Carbon Dioxide 25 mmol/L (20-31); Chloride 104 mmol/L (98-107); Potassium 4.2 mmol/L (3.5-5.1); Sodium 138 mmol/L (136-145); Total Protein 7.6 g/dL (5.7-8.2)
[2025-01-07 06:30] LABS: Bilirubin, Total 0.5 mg/dL (0.2-1.0)
[2025-01-07 06:47] LABS: Alanine Aminotransferase 85 U/L (7-40); Glucose 120 mg/dL (74-106)
--- NOTE | 2025-01-07 09:58 | DVHPN2 ---
Reviewed: Care Plan, H&P, Labs, Medications, Previous Orders, Radiology Changes from previous H/P or p: No Changes Objective Vitals Vital Signs Date Time Temp Pulse Resp B/P (MAP) Pulse Ox O2 Delivery O2 Flow Rate FiO2 01/07/25 08:00 Room Air* 0 21 01/07/25 05:00 97.6 89 17 125/55 (78) 97 97.6 Intake/Output Intake and Output 01/07/25 07:00 Intake Total 5150 ml Balance 5150 ml Intake Oral 5000 ml IV Total 150 ml # Voids 10 # Bowel Movements 2 Medications Current Medications Medications Dose Ordered Sig/Leslie Route Start Time Stop Time Status Last Admin Dose Admin Clindamycin Phosphate 50 ml @ 50 mls/hr Q8HR IV 01/03/25 22:00 01/07/25 06:53 50 MLS/HR Acetaminophen/ Hydrocodone Bitart 1 tab Q4HP PRN PO 01/03/25 20:45 Temazepam 15 mg QHSP PRN PO 01/03/25 20:45 Ondansetron HCl 4 mg Q4HP PRN IV 01/03/25 20:45 Enoxaparin Sodium 40 mg DAILY SC 01/04/25 10:00 01/06/25 10:28 40 MG Acetaminophen 650 mg Q6HP PRN PO 01/03/25 20:45 Ceftriaxone Sodium 50 ml @ 100 mls/hr Q24H IV 01/04/25 23:00 01/06/25 23:32 100 MLS/HR Laboratory Results Laboratory Tests 01/07/25 04:53 Chemistry Test 01/07/25 04:53 Albumin 4.4 g/dL (3.2-4.8) Calcium Level 9.3 mg/dL (8.7-10.4) Total Protein 7.6 g/dL (5.7-8.2) LFT Test 01/07/25 04:53 Alanine Aminotransferase (ALT) 85 U/L (7-40) H Alkaline Phosphatase 80 U/L (46-116) Aspartate Amino Transferase (AST) 46 U/L (13-40) H Total Bilirubin 0.5 mg/dL (0.2-1.0) Microbiology Microbiology Date/Time Source Procedure Growth Status 01/04/25 05:00 Nose MRSA Screen - Final Complete 01/03/25 20:43 Blood Blood Culture - Preliminary NO GROWTH AFTER 72 HOURS OF INCUBATION. 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 No significant thickening of the cartilaginous cap to suggest malignant transformation. Consult for orthopedic Dr Jacobs pending Plan discussed with: Patient Date of Service: Jan 07, 2025 Billing Provider: CAIN SALINAS MD Common Visit Codes: [id number] INP/OBS CARE(HIGH) CAIN SALINAS MD Jan 07, 2025 09:58
--- NOTE | 2025-01-07 09:59 | DVHINCON2 ---
Date of service: Jan 07, 2025 Reason for Consultation Left leg osteochondroma/swelling History of Present Illness 39 yo M complains of left leg recurrent swelling/cellulitis - no injury or tr auma that he can recall. No current cp/sob/abd pain. Occ fever/myalgia. Past Medical History denies Family History: FH: cancer Glaucoma G8 MOTHER Allergies: Coded Allergies: NO KNOWN ALLERGIES (Unverified , 11/14/24) Home Meds Active Scripts Amoxicillin & Pot Clavulanate (AUGMENTIN TABLET) 875 Mg Tb, 875 MG PO BID for 10 Days, #20 TAB Prov:MATT FOSTER MD 11/17/24 Review of Systems 10 POINT ROS neg except per HPI Vital Signs Vital Signs Date Time Temp Pulse Resp B/P (MAP) Pulse Ox O2 Delivery O2 Flow Rate FiO2 01/07/25 08:00 Room Air* 0 21 01/07/25 05:00 97.6 89 17 125/55 (78) 97 97.6 Physical Exam NAD obese LLE: +swelling at tibia +erythema +TA/GS/EHL/FHL foot wwp Labs/Diagnostic Data Labs Test 01/07/25 04:53 01/03/25 22:55 01/03/25 16:35 Range/Units White Blood Count 10.1 # 4.4-10.8 10^3/uL Red Blood Count 4.93 4.5-5.90 10^6/uL Hemoglobin 15.9 13.5-17.5 g/dL Hematocrit 45.0 41.0-53.0 % Mean Corpuscular Volume 91.3 80.0-100.0 fL Mean Corpuscular Hemoglobin 32.3 H 28.0-32.0 pg Mean Corpuscular Hemoglobin Concent 35.4 32.0-36.0 g/dL Red Cell Distribution Width 13.5 11.8-14.3 % Platelet Count 261 140-450 10^3/uL Mean Platelet Volume 9.3 6.9-10.8 fL Neutrophils (%) (Auto) 62.8 37.0-80.0 % Lymphocytes (%) (Auto) 25.0 10.0-50.0 % Monocytes (%) (Auto) 7.4 0.0-12.0 % Eosinophils (%) (Auto) 4.2 0.0-7.0 % Basophils (%) (Auto) 0.6 0.0-2.0 % Neutrophils # (Auto) 6.3 1.6-8.6 10 ^3/uL Lymphocytes # (Auto) 2.5 0.4-5.4 10 ^3/uL Monocytes # (Auto) 0.8 0-1.3 10 ^3/uL Eosinophils # (Auto) 0.4 0-0.8 10 ^3/uL Basophils # (Auto) 0.1 0-0.2 10 ^3/uL Nucleated Red Blood Cells 0.0 % Sodium Level 138 136-145 mmol/L Potassium Level 4.2 3.5-5.1 mmol/L Chloride Level 104 98-107 mmol/L Carbon Dioxide Level 25 20-31 mmol/L Anion Gap 9 5-15 Blood Urea Nitrogen 10 9-23 mg/dL Creatinine 0.88 0.700-1.30 mg/dL Glomerular Filtration Rate Calc 112 >90 mL/min BUN/Creatinine Ratio 11.4 10.0-20.0 Serum Glucose 120 H 74-106 mg/dL Calcium Level 9.3 8.7-10.4 mg/dL Total Bilirubin 0.5 0.2-1.0 mg/dL Aspartate Amino Transferase (AST) 46 H 13-40 U/L Alanine Aminotransferase (ALT) 85 H 7-40 U/L Alkaline Phosphatase 80 46-116 U/L Total Protein 7.6 5.7-8.2 g/dL Albumin 4.4 3.2-4.8 g/dL Lactic Acid Level 1.2 0.4-2.0 mmol/L D-Dimer, Quantitative 0.59 H 0.0-0.49 mg/L FEU Microbiology Date/Time Source Procedure Growth Status 01/04/25 05:00 Nose MRSA Screen - Final Complete 01/03/25 20:43 Blood Blood Culture - Preliminary NO GROWTH AFTER 72 HOURS OF INCUBATION. Resulted Plan/Recommendation 39 yo M With left leg cellulitis with tibia osteochondroma 1. WBAT 2. no surgical intervention for osteochondroma 3. IV abx 4. mobilize as tolerated 5. fu as needed Plan discussed with: Patient KAREN YAN MD Jan 07, 2025 09:59
[2025-01-07 14:53] LABS: Amphetamine Screen, Urine Neg (NEGATIVE); Barbiturate Scree,Urine Neg (NEGATIVE); Benzodiazephine Screen, Urine Neg (NEGATIVE); Cannabinoid Screen, Urine Pos (NEGATIVE); Cocaine Screen, Urine Neg (NEGATIVE); Opiate Scree,Urine Neg (NEGATIVE); Phencyclidine Screen, Urine Neg (NEGATIVE)
[2025-01-08 01:00] VITALS: BP 117/78; PULSE 67; RESP 18; TEMP 97.8; O2SAT 98
[2025-01-08 05:00] VITALS: BP 121/81; PULSE 72; RESP 17; TEMP 97.7; O2SAT 94
[2025-01-08 09:00] VITALS: BP 139/103; PULSE 62; RESP 15; TEMP 98.1; O2SAT 99
[2025-01-08] MEDS ORDERED: CLIN1CAP70 PO (09:17)
--- NOTE | 2025-01-08 09:20 | DVHPN2 ---
Reviewed: Care Plan, H&P, Labs, Medications, Previous Orders, Radiology Changes from previous H/P or p: No Changes Objective Vitals Vital Signs Date Time Temp Pulse Resp B/P (MAP) Pulse Ox O2 Delivery O2 Flow Rate FiO2 01/08/25 05:00 97.7 72 17 121/81 (94) 94 97.7 01/07/25 20:00 Room Air* 0 21 Intake/Output Intake and Output 01/08/25 07:00 Intake Total 1130 ml Balance 1130 ml Intake Oral 980 ml IV Total 150 ml # Voids 5 # Bowel Movements 1 Medications Current Medications Medications Dose Ordered Sig/Leslie Route Start Time Stop Time Status Last Admin Dose Admin Clindamycin Phosphate 50 ml @ 50 mls/hr Q8HR IV 01/03/25 22:00 01/08/25 05:03 50 MLS/HR Acetaminophen/ Hydrocodone Bitart 1 tab Q4HP PRN PO 01/03/25 20:45 Temazepam 15 mg QHSP PRN PO 01/03/25 20:45 Ondansetron HCl 4 mg Q4HP PRN IV 01/03/25 20:45 Enoxaparin Sodium 40 mg DAILY SC 01/04/25 10:00 01/07/25 10:28 40 MG Acetaminophen 650 mg Q6HP PRN PO 01/03/25 20:45 Ceftriaxone Sodium 50 ml @ 100 mls/hr Q24H IV 01/04/25 23:00 01/07/25 23:24 100 MLS/HR Laboratory Results Laboratory Tests 01/07/25 04:53 Microbiology Microbiology Date/Time Source Procedure Growth Status 01/04/25 05:00 Nose MRSA Screen - Final Complete 01/03/25 20:43 Blood Blood Culture - Preliminary NO GROWTH AFTER 72 HOURS OF INCUBATION. 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 No significant thickening of the cartilaginous cap to suggest malignant transformation. Orthopedic Dr Jacobs advised no surgical intervention needed. Plan discussed with: Patient Date of Service: Jan 08, 2025 Billing Provider: CAIN SALINAS MD Common Visit Codes: [id number] INP/OBS CARE(HIGH) CAIN SALINAS MD Jan 08, 2025 09:20
--- NOTE | 2025-01-08 09:34 | DVHDS2 ---
Discharge Summary Date of Admission Jan 03, 2025 at 20:00 Date of Discharge: Jan 08, 2025 Admitting Diagnosis Swelling and redness and pain left lower extremity Wounds: Cellulitis left lower leg Labs/Diagnostic Data: Laboratory Results Test 01/07/25 13:45 01/07/25 04:53 01/03/25 22:55 01/03/25 16:35 Urine Opiates Screen Neg (NEGATIVE) Urine Fentanyl Screen Neg (NEGATIVE) Urine Barbiturates Screen Neg (NEGATIVE) Urine Phencyclidine Screen Neg (NEGATIVE) Urine Amphetamines Screen Neg (NEGATIVE) Urine Benzodiazepines Screen Neg (NEGATIVE) Urine Cocaine Screen Neg (NEGATIVE) Urine Cannabinoids Screen Pos (NEGATIVE) White Blood Count 10.1 10^3/uL (4.4-10.8) Red Blood Count 4.93 10^6/uL (4.5-5.90) Hemoglobin 15.9 g/dL (13.5-17.5) Hematocrit 45.0 % (41.0-53.0) Mean Corpuscular Volume 91.3 fL (80.0-100.0) Mean Corpuscular Hemoglobin 32.3 pg (28.0-32.0) Mean Corpuscular Hemoglobin Concent 35.4 g/dL (32.0-36.0) Red Cell Distribution Width 13.5 % (11.8-14.3) Platelet Count 261 10^3/uL (140-450) Mean Platelet Volume 9.3 fL (6.9-10.8) Neutrophils (%) (Auto) 62.8 % (37.0-80.0) Lymphocytes (%) (Auto) 25.0 % (10.0-50.0) Monocytes (%) (Auto) 7.4 % (0.0-12.0) Eosinophils (%) (Auto) 4.2 % (0.0-7.0) Basophils (%) (Auto) 0.6 % (0.0-2.0) Neutrophils # (Auto) 6.3 10 ^3/uL (1.6-8.6) Lymphocytes # (Auto) 2.5 10 ^3/uL (0.4-5.4) Monocytes # (Auto) 0.8 10 ^3/uL (0-1.3) Eosinophils # (Auto) 0.4 10 ^3/uL (0-0.8) Basophils # (Auto) 0.1 10 ^3/uL (0-0.2) Nucleated Red Blood Cells 0.0 % Erythrocyte Sedimentation Rate 29 mm/hr (0-20) Sodium Level 138 mmol/L (136-145) Potassium Level 4.2 mmol/L (3.5-5.1) Chloride Level 104 mmol/L (98-107) Carbon Dioxide Level 25 mmol/L (20-31) Anion Gap 9 (5-15) Blood Urea Nitrogen 10 mg/dL (9-23) Creatinine 0.88 mg/dL (0.700-1.30) Glomerular Filtration Rate Calc 112 mL/min (>90) BUN/Creatinine Ratio 11.4 (10.0-20.0) Serum Glucose 120 mg/dL (74-106) Calcium Level 9.3 mg/dL (8.7-10.4) Total Bilirubin 0.5 mg/dL (0.2-1.0) Aspartate Amino Transferase (AST) 46 U/L (13-40) Alanine Aminotransferase (ALT) 85 U/L (7-40) Alkaline Phosphatase 80 U/L (46-116) C-Reactive Protein High Sensitivity 2.22 mg/dL (<1.0) Total Protein 7.6 g/dL (5.7-8.2) Albumin 4.4 g/dL (3.2-4.8) Lactic Acid Level 1.2 mmol/L (0.4-2.0) D-Dimer, Quantitative 0.59 mg/L FEU (0.0-0.49) Other Laboratory Tests 01/07/25 04:53 Brief Hx & Hospital Course: 39-year-old male came in complaining of swelling and pain left lower leg found to have cellulitis treated with the Rocephin and clindamycin. CT left leg showed 4 x 2 cm left proximal via exostosis . Orthopedic Dr Jacobs evaluated the patient and advised no surgical intervention. The patient requesting to be discharged home discharged home on clindamycin for cellulitis he will follow up with the discharge clinic in one week. 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 No significant thickening of the cartilaginous cap to suggest malignant transformation. Orthopedic Dr Jacobs advised no surgical intervention needed. Discharge Disposition: Home Discharge Instruct/Medications Diet: Regular Activity: Light activity Follow Up/Referral: Follow up with the discharge clinic in one week Medications: Clindamycin 300 mg PO TID 30 [facility] Scheduled Amoxicillin & Pot Clavulanate (Augmentin Tablet), 875 MG PO BID Clindamycin Hcl (Clindamycin Hcl), 1 CAP PO TID 35 (Time taken for discharge summary 35 minutes) Discharge Statement: "Patient was advised to return to the ER or call 911 if any headaches, dizziness, shortness of breath, chest pain, abdominal pain, bleeding, fevers, or worsening of medical condition. Patient was counseled about treatment plan, medications, possible side effects, patientverbalized understanding. All questions were answered to the best of my ability. 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 No significant thickening of the cartilaginous cap to suggest malignant transformation. Orthopedic Dr Jacobs advised no surgical intervention needed. Date of Service: Jan 08, 2025 Billing Provider: CAIN SALINAS MD Common Visit Codes: [id number] INP/OBS CARE(HIGH) CAIN SALINAS MD Jan 08, 2025 09:34
[2025-01-08 09:39] VITALS: BP 121/81; PULSE 72; RESP 17; TEMP 97.7; O2SAT 94
== END 2025-01-08 12:30 | disposition home or self-care (01) | DRG 720 ==
LOC: ER 15:35 → OVERFLOW 20:00 → CENTRAL 23:30
PROVIDERS: ADMIT Family Medicine; ATTEND Family Medicine
DX: A41.9 Sepsis, unspecified organism (principal); E87.20 Acidosis, unspecified; L03.116 Cellulitis of left lower limb; E66.01 Morbid (severe) obesity due to excess calories; E86.0 Dehydration; D16.22 Benign neoplasm of long bones of left lower limb; Z79.2 Long term (current) use of antibiotics; Z79.899 Other long term (current) drug therapy; Z68.38 Body mass index [BMI] 38.0-38.9, adult
CPT/HCPCS: 36415; 73700; 73718; 80048; 80053; 80307; 83605; 85025; 85379; 85652; 86141; 87040; 87081; 93971; 96365; 96375; G0378; J1885; J3490

== ENCOUNTER 2025-02-28 12:52 | Inpatient (IN) | payer MEDICAID ==
[~2025-02-28] VITALS: Ht 182.9 cm; Wt 132.0 kg
[~2025-02-28 12:52] MED LIST changes: +CLIN1CAP70 PO
[2025-02-28] MEDS: CLINDAMYCIN 600MG IV 50 ML IV ONE (13:29)
[2025-02-28 13:49] LABS: Hematocrit 46.3 % (41.0-53.0); Hemoglobin 15.9 g/dL (13.5-17.5); Mean Corpuscular Hemoglobin 31.3 pg (28.0-32.0); Mean Corpuscular Volume 91.2 fL (80.0-100.0); Nucleated Red Blood Cells % 0.1 %
--- NOTE | 2025-02-28 14:00 | DVH ---
US LT Lower DVT HISTORY: dvt COMPARISON: US LT LOWER DVT on DOS: 01/03/25, US LT LOWER DVT on DOS: 11/14/24 TECHNIQUE: Duplex doppler evaluation of the deep venous system of the lower extremity from the common femoral veins, superficial femoral vein, great saphenous vein, deep femoral vein, popliteal vein, an d calf veins, including color doppler and spectral/pulsed waveform analysis, was performed. Lateralit y is not clearly defined. FINDINGS: - Common femoral vein: Compressible - Deep femoral vein: Compressible - Femoral vein: Compressible - Popliteal vein: Compressible - Posterior tibial vein: Waveforms present - Other: Nothing IMPRESSION: No lower extremity deep venous thrombosis.
[2025-02-28 14:01] LABS: Chloride 103 mmol/L (98-107); Potassium 3.7 mmol/L (3.5-5.1); Sodium 141 mmol/L (136-145)
[2025-02-28 14:02] LABS: Anion Gap 9 (5-15); Calcium 9.3 mg/dL (8.7-10.4); Carbon Dioxide 29 mmol/L (20-31)
[2025-02-28 14:07] LABS: BUN/Creatinine Ratio 12.5 (10.0-20.0); Blood Urea Nitrogen 13 mg/dL (9-23); Glucose 116 mg/dL (74-106)
--- NOTE | 2025-02-28 14:53 | ED.PDOC ---
History of Present Illness HPI Comments 39-year-old male presents to the ER with prior medical history of cellulitis on left leg on 12/15/2024 and a chief complaint of LE. Patient reports on having cellulitis on the left lower extremity which started yesterday with swelling and redness. Patient states I have slight discomfort to the area". Denies any other symptoms at this time. Denies chills, fever, N/V/D, SOB, CP. No other associated symptoms, modifiers, recent injuries or sick contacts present at this time. Chief Complaint: Lower Extremity Time Seen by MD: 14:50 Primary Care Provider: UNKNOWN Reviewed Notes: Nurses Notes, Medications, Allergies Allergies: Coded Allergies: NO KNOWN ALLERGIES (Unverified , 11/14/24) Home Meds Active Scripts Clindamycin Hcl (Clindamycin Hcl) 300 Mg Cap, 1 CAP PO TID, #30 CAP Prov:CAIN SALINAS MD 01/08/25 Amoxicillin & Pot Clavulanate (AUGMENTIN TABLET) 875 Mg Tb, 875 MG PO BID for 10 Days, #20 TAB Prov:MATT FOSTER MD 11/17/24 Information Source: Patient Mode of Arrival: Ambulatory Severity: Moderate Timing: Hours Duration: Since onset, Hours Prehospital treatment: None Past Medical History Past Medical History (Other): Cellulitis of left lower extremity on 12/15/2024 Surgical History: Denies all surgeries Family History Family History: Reviewed,noncontributory to illness, Unknown Social History Smoker: Non-Smoker Alcohol: Denies ETOH Use Drugs: Marijuana Lives In: Home Constitutional: denies: chills, diaphoresis, fatigue, fever, malaise, sweats, weakness, others EENTM: denies: blurred vision, double vision, ear bleeding, ear discharge, ear drainage, ear pain, ear ringing, eye pain, eye redness, hearing loss, mouth pain, mouth swelling, nasal discharge, nose bleeding, nose congestion, nose pain, photophobia, tearing, throat pain, throat swelling, voice changes, others Respiratory: denies: cough, hemoptysis, orthopnea, SOB at rest, shortness of breath, SOB with excertion, stridor, wheezing, others Cardiovascular: denies: chest pain, dizzy spells, diaphoresis, Dyspnea on exertion, edema, irregular heart beat, left arm pain, lightheadedness, palpitations, PND, syncope, others Gastrointestinal: denies: abdomen distended, abdominal pain, blood streaked bowels, constipated, diarrhea, dysphagia, difficulty swallowing, hematemesis, melena, nausea, poor appetite, poor fluid intake, rectal bleeding, rectal pain, vomiting, others Genitourinary: denies: burning, dysuria, flank pain, frequency, hematuria, incontinence, penile discharge, penile sore, pain, testicle pain, testicle swelling, urgency, others Neurological: denies: dizziness, fainting, headache, left sided numbness, left sided weakness, numbness, paresthesia, pre-existing deficit, right sided numbness, right sided weakness, seizure, speech problems, tingling, tremors, weakness, others Musculoskeletal: denies: back pain, gout, joint pain, joint swelling, muscle pain, muscle stiffness, neck pain, others Integumetry: reports: others (Left lower extremities has cellulitis associated with swelling and redness.); denies: bruises, change in color, change in hair /nails, dryness, laceration, lesions, lumps, rash, wounds Allergic/Immunocompromised: denies: Difficulty Healing, Frequent Infections, Hives, Itching, others Hematologic/Lymphatic: denies: anemia, blood clots, easy bleeding, easy bruising, swollen glands, others Endocrine: denies: excessive hunger, excessive sweating, excessive thirst, excessive urination, flushing, intolerance to cold, intolerance to heat, unexplained weight gain, unexplained weight loss, others Psychiatric: denies: anxiety, bipolar disorder, depression, hopeless, panic disorder, schizophrenia, sleepless, suicidal, others All Other Systems: Reviewed and Negative Physical Exam General Appearance: Moderate Distress, Normal HEENT: Normal ENT Inspection, Pharynx Normal, TMs Normal Neck: Full Range of Motion, Non-Tender, Normal, Normal Inspection Respiratory: Chest Non-Tender, Lungs Clear, No Accessory Muscle Use, No Respiratory Distress, Normal Breath Sounds Cardiovascular: No Edema, No JVD, No Murmur, No Gallop, Normal Peripheral Pulses, Regular Rate/Rhythm Breast Exam: Deferred Gastrointestinal: No Organomegaly, Non Tender, No Pulsatile Mass, Normal Bowel Sounds, Soft Genitalia: Deferred Pelvic: Deferred Rectal: Deferred Extremities: No calf tenderness, Normal capillary refill, Normal range of motion, Non-tender, Swelling (Left lower extremity) Musculoskeletal : Apperance: Normal Neurologic: Alert, beauty therapist II-XII nml as Tested, No Motor Deficits, Normal Affect, Normal Mood, No Sensory Deficits Cerebellar Function: Normal Reflexes: Normal Skin: Dry, Normal Color, Warm Peripheral Pulses: 3+ Radial (R), 3+ Radial (L) Lymphatic: No Adenopathy Was a procedure done? Was a procedure done?: No Differential Dx Considerations may include: Cellulitis Electrolyte imbalance X-Ray, Labs, Meds, VS Vital Signs Date Time Temp Pulse Resp B/P (MAP) Pulse Ox O2 Delivery O2 Flow Rate FiO2 02/28/25 13:22 93 18 152/89 (110) 93 02/28/25 13:22 93 18 96 Room Air 02/28/25 12:55 98.4 89 19 132/99 98 98.4 Lab Test 02/28/25 13:26 Range/Units White Blood Count 15.0 H 4.4-10.8 10^3/uL Red Blood Count 5.07 4.5-5.90 10^6/uL Hemoglobin 15.9 13.5-17.5 g/dL Hematocrit 46.3 41.0-53.0 % Mean Corpuscular Volume 91.2 80.0-100.0 fL Mean Corpuscular Hemoglobin 31.3 28.0-32.0 pg Mean Corpuscular Hemoglobin Concent 34.3 32.0-36.0 g/dL Red Cell Distribution Width 13.7 11.8-14.3 % Platelet Count 196 140-450 10^3/uL Mean Platelet Volume 9.4 6.9-10.8 fL Neutrophils (%) (Auto) 76.7 37.0-80.0 % Lymphocytes (%) (Auto) 14.5 10.0-50.0 % Monocytes (%) (Auto) 7.7 0.0-12.0 % Eosinophils (%) (Auto) 1.0 0.0-7.0 % Basophils (%) (Auto) 0.1 0.0-2.0 % Neutrophils # (Auto) 11.5 H 1.6-8.6 10 ^3/uL Lymphocytes # (Auto) 2.2 0.4-5.4 10 ^3/uL Monocytes # (Auto) 1.2 0-1.3 10 ^3/uL Eosinophils # (Auto) 0.1 0-0.8 10 ^3/uL Basophils # (Auto) 0 0-0.2 10 ^3/uL Nucleated Red Blood Cells 0.1 % Sodium Level 141 136-145 mmol/L Potassium Level 3.7 3.5-5.1 mmol/L Chloride Level 103 98-107 mmol/L Carbon Dioxide Level 29 20-31 mmol/L Anion Gap 9 5-15 Blood Urea Nitrogen 13 9-23 mg/dL Creatinine 1.04 0.700-1.30 mg/dL Glomerular Filtration Rate Calc 94 >90 mL/min BUN/Creatinine Ratio 12.5 10.0-20.0 Serum Glucose 116 H 74-106 mg/dL Calcium Level 9.3 8.7-10.4 mg/dL Current Medications Medications (Trade) Dose Ordered Sig/Leslie Route Start Time Stop Time Status Last Admin Ceftriaxone Sodium 50 ml @ 100 mls/hr ONCE ONCE IV 02/28/25 13:15 02/28/25 13:44 DC 02/28/25 13:29 Clindamycin Phosphate 50 ml @ 50 mls/hr ONCE ONCE IV 02/28/25 13:15 02/28/25 14:14 DC 02/28/25 13:29 Patient alert. Vitals stable. Complaining of left lower extremity swelling. Answering questions. Establish intravenous access. Was given Rocephin. Was given clindamycin. WBC slightly elevated. Hemoglobin within normal limits. Explained to the patient. Continue monitoring. Time of 1ST Reevaluation: 15:20 Reevaluation 1ST: Unchanged Patient Education/Counseling: Diagnosis, Treatment, Prognosis Family Education/Counseling: No Family Present SEPSIS Sepsis Screen Date sepsis recognized/suspect: Feb 28, 2025 Time Sepsis recognized/suspect: 1301 Recent Procedure: No On Antibiotic Therapy: No Respiratory Rate >20: No Heart Rate >90: No Temp<36 C (96.8 F) or >38.3 C: No SBP <90 or MAP <65 mmHG: No New Acute Mental Status Change: No Is the patient on CPAP, BIPAP,: No Physician Orders Lt Lower Dvt (02/28/25 13:06) Urinalysis (02/28/25 13:06) Vital Signs Date Time Temp Pulse Resp B/P (MAP) Pulse Ox O2 Delivery O2 Flow Rate FiO2 02/28/25 13:22 93 18 152/89 (110) 93 02/28/25 13:22 93 18 96 Room Air 02/28/25 12:55 98.4 89 19 132/99 98 98.4 Laboratory Tests Test 02/28/25 13:26 White Blood Count 15.0 10^3/uL (4.4-10.8) H Medications Medications Dose Ordered Sig/Leslie Route Start Time Stop Time Status Last Admin Dose Admin Ceftriaxone Sodium 50 ml @ 100 mls/hr ONCE ONCE IV 02/28/25 13:15 02/28/25 13:44 DC 02/28/25 13:29 Clindamycin Phosphate 50 ml @ 50 mls/hr ONCE ONCE IV 02/28/25 13:15 02/28/25 14:14 DC 02/28/25 13:29 Departure 1 Departure Time of Disposition: 15:17 Impression: Primary Impression: Cellulitis of left lower extremity Disposition: ADMITTED INPATIENT Admit to: Med Surg Condition: Guarded Critical Care Note Critical Care Time?: No Stability Stability form required: No Heart Score Heart Score: Heart Score Response (Comments) Value History N/A 0 EKG N/A 0 Age N/A 0 Risk Factors N/A 0 Troponin N/A 0 Total 0 I personally scribed for LORRANIE FERRO MD ([email or web address]) on 02/28/25 at 14:53. Electronically submitted by Brennan Marx ([email or web address]). I personally scribed for LORRAINE FERRO MD ([email or web address]) on 02/28/25 at 14:54. Electronically submitted by Brennan Marx ([email or web address]). LORRAINE FERRO MD Feb 28, 2025 14:53
[2025-02-28] MEDS: SODIUM CHLORIDE 0.9% 1,000 ML IV ONE ×2 (15:59→16:00)
[2025-02-28 18:05] LABS: Urine Protein, UAD 1+ (Negative)
[2025-02-28] MEDS ORDERED: MORPHINE SULFATE INJ 2 MG/ml SYRG IV PRN (18:45)
[2025-02-28] MEDS ORDERED: ONDANSETRON HCL 4 MG/2 ML VIAL IV PRN (18:45)
--- NOTE | 2025-02-28 18:57 | DVHHPRES ---
History of Present Illness Resident Creating Document: CLARAMARIANOALLEN RESIDENT History of Present Illness This is a 39-year-old male with past medical history of recurrent left leg cellulitis, osteochondroma of posterior tibial metadiaphysis, presented to the ER with chief complain of recurrence of left leg cellulitis. Patient complained of erythema and swelling [id number], which started yesterday. The erythema and swelling was preceded by complain of flu-like symptoms, patient complained of generalized weakness, subjective fever and chills 2 days back. He had no fever when he measured the temperature. He also complains of chronic left lower leg discoloration that has remained unchanged and is associated with increased sensitivity to pain in the left lower extremity. 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 He denies pain in affected extremity, scratching, consumption of raw seafood, travel outside the country. Previous hospitalization: In January 2025 for cellulitis, he was sent home with p.o. clindamycin course for 10 days which was reportedly completed. PMHx: Recurrent cellulitis, osteochondroma or posterior tibial metadiaphysis PSHx: Left hand tendon repair Family history: Breast cancer and colon cancer in mother Social history: Alcohol consumption, last used on Wednesday 3 beers, uses marijuana to help with sleep. Denies smoking. No other drug use reported. Home medication: As needed Tylenol for flu-like symptoms Allergic history: No known allergies Patient was examined at bedside today. Patient is in visible distress and is admitted for further evaluation and management. Review of Systems Review of Systems ROS: Constitutional: Generalized weakness, chills. Denies weight loss. HEENT: Denies changes in vision and hearing. Respiratory: Denies shortness of breath and cough Cardiovascular: Denies chest discomfort or palpitations GI: Denies abdominal pain, nausea, vomiting and diarrhea. : Denies dysuria and urinary frequency. Musculoskeletal: Erythema, swelling of left leg [id number], chronic discoloration of the left lower extremity Skin: Denies rash and pruritus. Neurological: Denies dizziness, headache, vision or hearing problems Allergies: Coded Allergies: NO KNOWN ALLERGIES (Unverified , 11/14/24) Medications Current Medications Medications Dose Ordered Sig/Leslie Route Start Time Stop Time Status Last Admin Dose Admin Ondansetron HCl 4 mg Q4HP PRN IV 02/28/25 18:45 UNV Enoxaparin Sodium 40 mg DAILY SC 03/01/25 10:00 UNV Morphine Sulfate 2 mg Q4HPRN PRN IV 02/28/25 18:45 UNV Exam Vital Signs Vital Signs Date Time Temp Pulse Resp B/P (MAP) Pulse Ox O2 Delivery O2 Flow Rate FiO2 02/28/25 16:33 98.7 83 18 139/85 (103) 98 98.7 02/28/25 13:22 Room Air Exam General: Patient alert and oriented in person, place and time. Patient following commands. HEENT: Normocephalic, atraumatic, moist mucous membranes Respiratory/pulmonary: Clear lungs bilaterally, vesicular murmurs present in almost all lung gaitan, no associated crackles or wheezes. Cardiovascular: Normal heart sounds S1 and S2 with no associated murmurs Abdomen: Abdomen nondistended, there is no pain to palpation in any of the abdominal quadrants, no palpable masses. Extremities: Left knee inferior surface: Erythema, elevated temperature and tenderness on palpation. Left distal lower extremity: Purple dusky discoloration, thickening of skin, grade 1 pitting edema. White flakes on bilateral lower feet including between the webs. Skin: No rashes or pruritus, there is no sacral edema present at this time. Neurological: Intact cranial nerves with no focal neurologic deficits Labs/Xrays Labs Test 02/28/25 16:02 02/28/25 13:26 Range/Units Urine Color Yellow Yellow Urine Clarity Clear Clear Urine pH 6.5 5.0-9.0 Urine Specific [place] 1.032 1.001-1.035 Urine Protein 1+ H Negative Urine Ketones Negative Negative Urine Blood Negative Negative /uL Urine Nitrite Negative Negative Urine Bilirubin Negative Negative Urine Urobilinogen 4 H Negative mg/dL Urine Leukocyte Esterase Negative Negative /uL Urine RBC 2 0 - 3 /hpf Urine Microscopic WBC < 1 0-3 /HPF Urine Squamous Epithelial Cells Few <5 /hpf Urine Bacteria None seen None Seen /hpf Urine Glucose 1+ H Normal mg/dL White Blood Count 15.0 H 4.4-10.8 10^3/uL Red Blood Count 5.07 4.5-5.90 10^6/uL Hemoglobin 15.9 13.5-17.5 g/dL Hematocrit 46.3 41.0-53.0 % Mean Corpuscular Volume 91.2 80.0-100.0 fL Mean Corpuscular Hemoglobin 31.3 28.0-32.0 pg Mean Corpuscular Hemoglobin Concent 34.3 32.0-36.0 g/dL Red Cell Distribution Width 13.7 11.8-14.3 % Platelet Count 196 140-450 10^3/uL Mean Platelet Volume 9.4 6.9-10.8 fL Neutrophils (%) (Auto) 76.7 37.0-80.0 % Lymphocytes (%) (Auto) 14.5 10.0-50.0 % Monocytes (%) (Auto) 7.7 0.0-12.0 % Eosinophils (%) (Auto) 1.0 0.0-7.0 % Basophils (%) (Auto) 0.1 0.0-2.0 % Neutrophils # (Auto) 11.5 H 1.6-8.6 10 ^3/uL Lymphocytes # (Auto) 2.2 0.4-5.4 10 ^3/uL Monocytes # (Auto) 1.2 0-1.3 10 ^3/uL Eosinophils # (Auto) 0.1 0-0.8 10 ^3/uL Basophils # (Auto) 0 0-0.2 10 ^3/uL Nucleated Red Blood Cells 0.1 % Sodium Level 141 136-145 mmol/L Potassium Level 3.7 3.5-5.1 mmol/L Chloride Level 103 98-107 mmol/L Carbon Dioxide Level 29 20-31 mmol/L Anion Gap 9 5-15 Blood Urea Nitrogen 13 9-23 mg/dL Creatinine 1.04 0.700-1.30 mg/dL Glomerular Filtration Rate Calc 94 >90 mL/min BUN/Creatinine Ratio 12.5 10.0-20.0 Serum Glucose 116 H 74-106 mg/dL Calcium Level 9.3 8.7-10.4 mg/dL SEPSIS Sepsis Screen Date sepsis recognized/suspect: Feb 28, 2025 Time Sepsis recognized/suspect: 1301 Recent Procedure: No On Antibiotic Therapy: No Respiratory Rate >20: No Heart Rate >90: No Temp<36 C (96.8 F) or >38.3 C: No SBP <90 or MAP <65 mmHG: No New Acute Mental Status Change: No Is the patient on CPAP, BIPAP,: No Physician Orders Lt Lower Dvt (02/28/25 13:06) Sodium Chloride 0.9% (02/28/25 15:30) Admit (02/28/25 18:45) Allergies (02/28/25 18:45) Code Status (02/28/25 18:45) Ondansetron Hcl (Zofran) (02/28/25 18:45) Enoxaparin Sodium (Lovenox) (03/01/25 10:00) Complete Blood Count (03/01/25 04:00) Comprehensive Metabolic Panel (03/01/25 04:00) Condition: Serious (02/28/25 18:45) Morphine Sulfate Injection (02/28/25 18:45) Oxygen By Nasal Cannula (02/28/25 18:45) Vital Signs Date Time Temp Pulse Resp B/P (MAP) Pulse Ox O2 Delivery O2 Flow Rate FiO2 02/28/25 16:33 98.7 83 18 139/85 (103) 98 98.7 02/28/25 13:22 93 18 152/89 (110) 93 02/28/25 13:22 93 18 96 Room Air 02/28/25 12:55 98.4 89 19 132/99 98 98.4 Laboratory Tests Test 02/28/25 13:26 White Blood Count 15.0 10^3/uL (4.4-10.8) H Medications Medications Dose Ordered Sig/Leslie Route Start Time Stop Time Status Last Admin Dose Admin Ceftriaxone Sodium 50 ml @ 100 mls/hr ONCE ONCE IV 02/28/25 13:15 02/28/25 13:44 DC 02/28/25 13:29 100 MLS/HR Clindamycin Phosphate 50 ml @ 50 mls/hr ONCE ONCE IV 02/28/25 13:15 02/28/25 14:14 DC 02/28/25 13:29 50 MLS/HR Sodium Chloride 1,000 ml @ 1,000 mls/hr Q1H ONCE IV 02/28/25 15:30 02/28/25 16:29 DC 02/28/25 15:59 1,000 MLS/HR Assessment/Plan Assessment/Plan Cellulitis History of recurrent cellulitis Osteochondroma of posterior tibial metadiaphysis Obesity class [address] from January 2025 shows prominent bony exostosis off the posterior aspect of the proximal tibia measuring 4.4 cm length 1.5 cm AP , 2.4 cm in transverse dimension. dimension. This may be compressing the posterior vascular structures. MRI from the same time revealed Osteochondroma at the posterior aspect of the proximal tibial metadiaphysis. No significant thickening of the cartilaginous cap to suggest malignant transformation. Supportive management with IV NS bolus and maintenance, morphine, Zofran IV vancomycin, cefepime started Wound care consulted HIV, drug screen, hepatic panel, MRSA serology, JARRET fungal, blood culture, wound culture left lower extremity arterial duplex ultrasound ordered Influenza, COVID serology, chest x-ray ordered DVT ruled out Doppler ultrasound ruled out DVT DIET: Regular DVT PROPHYLAXIS: Lovenox GI PROPHYLAXIS: Protonix CODE STATUS: Goals of care discussed with patient at bedside for more than 37 minutes. Full code DISPOSITION: Med/surge This medical document was created using an electronic medical record system with [employer] direct computerized dictation system. Although this document has been carefully reviewed, there may still be some phonetic and typographical errors. These areas are purely typographical due to imperfections of the software programs, and do not reflect any compromise in the patient's medical care. Patient's status and plan discussed with the patient. Case discussed with Dr. Wang Plan discussed with: Patient, Other (Nurses) My Orders Orders - ALLEN LAGUERRE RESIDENT Procedure Category Date Status Time Admit ADMIT 02/28/25 Transmitted 18:45 Allergies HÉCTOR 02/28/25 In Process 18:45 Code Status CODE 02/28/25 Transmitted 18:45 Ondansetron Hcl PHA 02/28/25 Logged (Zofran) 18:45 Enoxaparin Sodium PHA 03/01/25 Logged (Lovenox) 10:00 Complete Blood Count LAB 03/01/25 Verified 04:00 Comprehensive LAB 03/01/25 Verified Metabolic Panel 04:00 Condition: Serious HÉCTOR 02/28/25 In Process 18:45 Morphine Sulfate PHA 02/28/25 Logged Injection 18:45 Oxygen By Nasal RT 02/28/25 Transmitted Cannula 18:45 Date of Service: Feb 28, 2025 Billing Provider: BENNIE WANG MD Common Visit Codes: [id number] INP/OBS CARE (HIGH) Secondary Visit Codes: [id number] CARE PLAN 30 MINUTES ALLEN LAGUERRE RESIDENT Feb 28, 2025 18:56 BENNIE WANG MD Mar 05, 2025 20:49
[2025-02-28] MEDS ORDERED: VANCOMYCIN PER PHARMACY 0 MG IV SCH (19:30)
--- NOTE | 2025-02-28 19:54 | DVH ---
BILATERAL LOWER EXTREMITY ARTERIAL DUPLEX ULTRASOUND STUDY: REASON FOR EXAM: Left lower extremity pain. TECHNIQUE: The full lengths of the arterial segments were evaluated with color-flow Doppler ultrasoun d. Suspected abnormalities were evaluated with murguia scale ultrasound. Physician/Internist spectral Doppler waveforms, with velocity measurements were obtained. Spectral waveforms with velocity measurements w ere obtained 2 to 4 cm central to any areas of significant stenosis. Common femoral, superficial femo ral, popliteal, posterior tibial, anterior tibial, and dorsal pedal arteries were evaluated. FINDINGS: There is minimal atherosclerotic plaque in the left lower extremity. The common femoral artery wavef orm is multiphasic with a brisk upstroke. The superficial femoral and popliteal arteries are patent w ith multiphasic waveforms. The posterior tibial, anterior tibial, and dorsalis pedis arteries are pat ent with multiphasic waveforms. IMPRESSION: No hemodynamically significant stenosis. Minimal plaque.
[2025-02-28 20:00] LABS: Albumin 4.5 g/dL (3.2-4.8); Alkaline Phosphatase 85.0 U/L (46-116); Bilirubin, Direct 0.2 mg/dL (<0.3); Bilirubin, Total 0.5 mg/dL (0.2-1.0); Total Protein 7.9 g/dL (5.7-8.2)
[2025-02-28 20:01] LABS: Alanine Aminotransferase 58.0 U/L (7-40)
--- NOTE | 2025-02-28 20:03 | DVH ---
CHEST RADIOGRAPH Indication: r/o PNA Technique: 1 view Comparison: None FINDINGS: Lines and Tubes: None. Lungs/Pleura: Linear opacities at the left lung base likely represent scarring/atelectasis. No focal consolidation, pleural effusion or pneumothorax. Cardiomediastinum: Unremarkable. Other: No acute osseous abnormality. IMPRESSION: 1. No acute cardiopulmonary abnormality.
[2025-02-28] MEDS: VANCOMYCIN 1GM/250ML KIT 250 ML IV SCH (21:07)
[2025-02-28] MEDS: PANTOPRAZOLE 40 MG TAB PO ONE (21:07)
[2025-02-28 21:25] LABS: COVID19 ANTIGEN SOFIA FIA NEGATIVE (NEGATIVE)
[2025-02-28] MEDS ORDERED: CEFEPIME 1GM/50ML 50 ML IV SCH (22:00)
[2025-02-28] MEDS ORDERED: CLINDAMYCIN 300MG IV 50 ML IV SCH (22:00)
[2025-02-28 22:30] VITALS: BP 140/94; PULSE 67; RESP 17; TEMP 98.1; O2SAT 100
[2025-02-28 22:54] VITALS: BP 140/94; PULSE 67; RESP 17; TEMP 98.1; O2SAT 100
[2025-03-01] VITALS (8 sets, daily range): BP systolic 118–130; BP diastolic 75–93; PULSE 67–80; RESP 16–19; TEMP 97.6–99.2; O2SAT 96–100
[2025-03-01] MEDS: VANCOMYCIN 1GM/250ML KIT 250 ML IV ONE
[2025-03-01] MEDS: CEFEPIME 1GM/50ML 50 ML IV SCH (00:53)
[2025-03-01] MEDS: PANTOPRAZOLE 40 MG TAB PO SCH (05:28)
[2025-03-01 06:45] LABS: Hematocrit 41.5 % (41.0-53.0); Hemoglobin 14.4 g/dL (13.5-17.5); Mean Corpuscular Hemoglobin 31.7 pg (28.0-32.0); Mean Corpuscular Volume 90.9 fL (80.0-100.0); Nucleated Red Blood Cells % 0.0 %
[2025-03-01 06:59] LABS: Albumin 4.1 g/dL (3.2-4.8); Alkaline Phosphatase 70 U/L (46-116); Anion Gap 9 (5-15); BUN/Creatinine Ratio 10.6 (10.0-20.0); Blood Urea Nitrogen 9 mg/dL (9-23); Calcium 8.8 mg/dL (8.7-10.4); Carbon Dioxide 27 mmol/L (20-31); Potassium 3.9 mmol/L (3.5-5.1); Sodium 144 mmol/L (136-145); Total Protein 7.2 g/dL (5.7-8.2)
[2025-03-01 07:00] LABS: Bilirubin, Total 0.4 mg/dL (0.2-1.0)
[2025-03-01 07:03] LABS: Alanine Aminotransferase 42 U/L (7-40); Chloride 108 mmol/L (98-107); Glucose 124 mg/dL (74-106)
[2025-03-01] MEDS: ENOXAPARIN SOD 40 MG/0.4 ML SYRINGE SC SCH (08:59)
[2025-03-01] MEDS: FLUCONAZOLE 100 MG TAB PO ONE (12:54)
[2025-03-01] MEDS: VANCOMYCIN 1.5GM/250ML 250 ML IV SCH (14:14)
--- NOTE | 2025-03-01 15:04 | DVH ---
CLINICAL HISTORY: LLE cellulitus TECHNIQUE: CT of the left lower extremity was performed without intravenous contrast. This exam was p erformed according to our departmental dose optimization program. Up-to-date CT equipment and radiati on dose reduction techniques are utilized as appropriate. CTDI 7.78 mGy DLP 600.24 mGy.cm COMPARISON: MRI MRI L TIB FIB WO CONTRAST on DOS: 01/05/25, CT CT L TIB FIB WO CONTRAST on DOS: 01/04/25 FINDINGS: Normal mineralization and alignment. There is a prominent osteochondroma off the posterior proximal t ibial metadiaphysis. Note is made of a fabella. No acute fracture. Joint spaces are preserved. There is mild 2 moderate subcutaneous edema in the visualized left lower extremity. The Muscle bundles ab out the left lower extremity are intact. No soft tissue gas or fluid collection. IMPRESSION: 1. No acute fracture or evidence of osteomyelitis. 2. Jizb-wz-untmqkle subcutaneous edema in the visualized left lower extremity. 3. No well-formed fluid collection or soft tissue gas. 4. Prominent osteochondroma off the posterior proximal tibial metadiaphysis.
[2025-03-02] VITALS (9 sets, daily range): BP systolic 118–171; BP diastolic 83–92; PULSE 60–83; RESP 16–20; TEMP 97.6–98; O2SAT 94–100
[2025-03-02 05:44] LABS: Hematocrit 42.1 % (41.0-53.0); Hemoglobin 14.8 g/dL (13.5-17.5); Mean Corpuscular Hemoglobin 31.9 pg (28.0-32.0); Mean Corpuscular Volume 90.7 fL (80.0-100.0); Nucleated Red Blood Cells % 0.1 %
[2025-03-02 05:58] LABS: Potassium 3.7 mmol/L (3.5-5.1); Sodium 141 mmol/L (136-145)
[2025-03-02 05:59] LABS: Anion Gap 9 (5-15); Calcium 8.9 mg/dL (8.7-10.4); Carbon Dioxide 25 mmol/L (20-31)
[2025-03-02 06:00] LABS: Chloride 107 mmol/L (98-107)
[2025-03-02 06:04] LABS: BUN/Creatinine Ratio 13.2 (10.0-20.0); Blood Urea Nitrogen 9 mg/dL (9-23)
[2025-03-02 06:21] LABS: Glucose 133 mg/dL (74-106)
[2025-03-02] MEDS: FLUCONAZOLE 100 MG TAB PO SCH (09:20)
--- NOTE | 2025-03-02 11:05 | DVHPNRES ---
Progress Note Date Seen: Mar 01, 2025 Resident Creating Document: ALLEN LAGUERRE RESIDENT Medical Necessity Reason Pt with a Central, PICC or Fol: No Subjective Review of Systems This is a 39-year-old male with past medical history of recurrent left leg cellulitis, osteochondroma of posterior tibial metadiaphysis, presented to the ER with chief complain of recurrence of left leg cellulitis. Patient complained of erythema and swelling [id number], which started yesterday. The erythema and swelling was preceded by complain of flu-like symptoms, patient complained of generalized weakness, subjective fever and chills 2 days back. He had no fever when he measured the temperature. He also complains of chronic left lower leg discoloration that has remained unchanged and is associated with increased sensitivity to pain in the left lower extremity. 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 He denies pain in affected extremity, scratching, consumption of raw seafood, travel outside the country. Previous hospitalization: In January 2025 for cellulitis, he was sent home with p.o. clindamycin course for 10 days which was reportedly completed. PMHx: Recurrent cellulitis, osteochondroma or posterior tibial metadiaphysis PSHx: Left hand tendon repair Family history: Breast cancer and colon cancer in mother Social history: Alcohol consumption, last used on Wednesday 3 beers, uses marijuana to help with sleep. Denies smoking. No other drug use reported. Home medication: As needed Tylenol for flu-like symptoms Allergic history: No known allergies ROS: Constitutional: Generalized weakness, chills. Denies weight loss. HEENT: Denies changes in vision and hearing. Respiratory: Denies shortness of breath and cough Cardiovascular: Denies chest discomfort or palpitations GI: Denies abdominal pain, nausea, vomiting and diarrhea. : Denies dysuria and urinary frequency. Musculoskeletal: Erythema, swelling of left leg [id number], chronic discoloration of the left lower extremity Skin: Denies rash and pruritus. Neurological: Denies dizziness, headache, vision or hearing problems 02/28/2025: Patient is in visible distress and is admitted for further evaluation and management. 03/01/2025: Patient was examined at bedside today. No new complaints, cellulitis area demarcated with black marker for monitoring. Continue IV antibiotics. Objective vital signs Vital Sign Date Time Temp Pulse Resp B/P (MAP) Pulse Ox O2 Delivery O2 Flow Rate FiO2 03/01/25 08:48 98.1 80 16 130/75 (93) 99 98.1 03/01/25 08:20 Room Air* 0 21 Total Intake and Output 02/28/25 02/28/25 03/01/25 15:00 23:00 07:00 Intake Total 2350 ml 300 ml Balance 2350 ml 300 ml medications Current Medications Medications Dose Ordered Sig/Leslie Route Start Time Stop Time Status Last Admin Dose Admin Ondansetron HCl 4 mg Q4HP PRN IV 02/28/25 18:45 Enoxaparin Sodium 40 mg DAILY SC 03/01/25 10:00 03/01/25 08:59 40 MG Morphine Sulfate 2 mg Q4HPRN PRN IV 02/28/25 18:45 Vancomycin HCl 0 ml @ 0 mls/hr PER PHARMACY IV 02/28/25 19:30 Pantoprazole Sodium 40 mg DAILY@0600 PO 03/01/25 06:00 03/01/25 05:28 40 MG Cefepime HCl 50 ml @ 12.5 mls/hr Q8H IV 03/01/25 01:00 03/01/25 08:59 12.5 MLS/HR Examination General: Patient alert and oriented in person, place and time. Patient following commands. HEENT: Normocephalic, atraumatic, moist mucous membranes Respiratory/pulmonary: Clear lungs bilaterally, vesicular murmurs present in almost all lung gaitan, no associated crackles or wheezes. Cardiovascular: Normal heart sounds S1 and S2 with no associated murmurs Abdomen: Abdomen nondistended, there is no pain to palpation in any of the abdominal quadrants, no palpable masses. Extremities: Left knee inferior surface demarcated: Erythema, elevated temperature and tenderness on palpation. Left distal lower extremity: Purple dusky discoloration, thickening of skin, grade 1 pitting edema. White flakes on bilateral lower feet including between the webs. Skin: No rashes or pruritus, there is no sacral edema present at this time. Neurological: Intact cranial nerves with no focal neurologic deficits laboratory and microbiology Laboratory Tests 03/01/25 05:40 Test 03/01/25 05:40 Range/Units Serum Glucose 124 H 74-106 mg/dL Problem List/Assessment/Plan Problem List/Assessment/Plan Left [id number] Cellulitis Tenia pedis bilateral feet History of recurrent left leg cellulitis Osteochondroma of posterior tibial metadiaphysis Obesity class [address] from January 2025 shows prominent bony exostosis off the posterior aspect of the proximal tibia measuring 4.4 cm length 1.5 cm AP, 2.4 cm in transverse dimension. dimension. This may be compressing the posterior vascular structures. MRI from the same time revealed Osteochondroma at the posterior aspect of the proximal tibial metadiaphysis. No significant thickening of the cartilaginous cap to suggest malignant transformation. Lower extremity arterial duplex showed no stenosis, minimal plaque Chest x-ray shows no acute cardiopulmonary abnormality HIV, hepatic panel, MRSA, influenza, COVID serology negative [place] fungal, blood culture, wound culture ordered, Drug screen pending CT left leg ordered Supportive management with IV NS bolus and maintenance, morphine, Zofran Continue IV vancomycin, cefepime Started on oral fluconazole 200 mg daily Wound care consulted DVT ruled out Doppler ultrasound ruled out DVT DIET: Regular DVT PROPHYLAXIS: Lovenox GI PROPHYLAXIS: Protonix CODE STATUS: Goals of care discussed with patient at bedside for more than 16 minutes. Full code DISPOSITION: Med/surge This medical document was created using an electronic medical record system with [employer] direct computerized dictation system. Although this document has been carefully reviewed, there may still be some phonetic and typographical errors. These areas are purely typographical due to imperfections of the software programs, and do not reflect any compromise in the patient's medical care. Patient's status and plan discussed with the patient. Case discussed with Dr. Wang Plan discussed with: Patient, Other (Nurses) My Orders My Orders Orders - ALLEN LAGUERRE RESIDENT Procedure Category Date Status Time Admit ADMIT 02/28/25 Transmitted 18:45 Allergies HÉCTOR 02/28/25 In Process 18:45 Code Status CODE 02/28/25 Transmitted 18:45 Ondansetron Hcl PHA 02/28/25 In Process (Zofran) 18:45 Enoxaparin Sodium PHA 03/01/25 In Process (Lovenox) 10:00 Condition: Serious HÉCTOR 02/28/25 In Process 18:45 Morphine Sulfate PHA 02/28/25 In Process Injection 18:45 Oxygen By Nasal RT 02/28/25 Transmitted Cannula 18:45 Mrsa Screen HERBERT 02/28/25 In Process 18:56 Blood Culture HERBERT 02/28/25 Uncollected 18:56 Lt Low Ext Art Duplex US 02/28/25 Resulted 18:56 Chest Xray 1 View XY 02/28/25 Resulted 18:56 [place] Fungal HERBERT 02/28/25 Uncollected 18:56 Vancomycin Per PHA 02/28/25 In Process Pharmacy 19:30 Drug Screen LAB 02/28/25 Logged 19:36 Regular Diet DIET 03/01/25 Transmitted Breakfast Pantoprazole Tablet PHA 03/01/25 In Process (Protonix Tablet) 06:00 Cefepime 1gm/50ml PHA 03/01/25 In Process (Maxipime 1gm/50ml) 01:00 Date of Service: Mar 01, 2025 Billing Provider: EBNNIE WANG MD Common Visit Codes: [id number] INP/OBS CARE(HIGH) ALLEN LAGUERRE RESIDENT Mar 01, 2025 09:56 BENNIE WANG MD Mar 05, 2025 20:49
[2025-03-02] MEDS: DOXYCYCLINE 100 MG TAB/CAP PO ONE (12:07)
[2025-03-02] MEDS ORDERED: DOXY100C79 PO (12:10)
--- NOTE | 2025-03-02 16:34 | DVHPNRES ---
Progress Note Date Seen: Mar 02, 2025 Resident Creating Document: ALLEN LAGUERRE RESIDENT Medical Necessity Reason Pt with a Central, PICC or Fol: No Subjective Review of Systems This is a 39-year-old male with past medical history of recurrent left leg cellulitis, osteochondroma of posterior tibial metadiaphysis, presented to the ER with chief complain of recurrence of left leg cellulitis. Patient complained of erythema and swelling ksyef-sph-ukud, which started yesterday. The erythema and swelling was preceded by complain of flu-like symptoms, patient complained of generalized weakness, subjective fever and chills 2 days back. He had no fever when he measured the temperature. He also complains of chronic left lower leg discoloration that has remained unchanged and is associated with increased sensitivity to pain in the left lower extremity. 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 He denies pain in affected extremity, scratching, consumption of raw seafood, travel outside the country. Previous hospitalization: In January 2025 for cellulitis, he was sent home with p.o. clindamycin course for 10 days which was reportedly completed. PMHx: Recurrent cellulitis, osteochondroma or posterior tibial metadiaphysis PSHx: Left hand tendon repair Family history: Breast cancer and colon cancer in mother Social history: Alcohol consumption, last used on Wednesday 3 beers, uses marijuana to help with sleep. Denies smoking. No other drug use reported. Home medication: As needed Tylenol for flu-like symptoms Allergic history: No known allergies ROS: Constitutional: Generalized weakness, chills. Denies weight loss. HEENT: Denies changes in vision and hearing. Respiratory: Denies shortness of breath and cough Cardiovascular: Denies chest discomfort or palpitations GI: Denies abdominal pain, nausea, vomiting and diarrhea. : Denies dysuria and urinary frequency. Musculoskeletal: Erythema, swelling of left leg [id number], chronic discoloration of the left lower extremity Skin: Denies rash and pruritus. Neurological: Denies dizziness, headache, vision or hearing problems 02/28/2025: Patient is in visible distress and is admitted for further evaluation and management. 03/01/2025: No new complaints, cellulitis area demarcated with black marker for monitoring. Continue IV antibiotics. 03/02/2025: Patient was seen at bedside today. No new complaints. IV antibiotics switch to ceftriaxone, started on oral doxycycline. Objective vital signs Vital Sign Date Time Temp Pulse Resp B/P (MAP) Pulse Ox O2 Delivery O2 Flow Rate FiO2 03/02/25 13:00 97.7 68 20 134/88 (103) 100 97.7 03/02/25 08:20 Room Air* 0 21 Total Intake and Output 03/01/25 03/01/25 03/02/25 15:00 23:00 07:00 Intake Total 50 ml 1100 ml 1300 ml Balance 50 ml 1100 ml 1300 ml medications Current Medications Medications Dose Ordered Sig/Leslie Route Start Time Stop Time Status Last Admin Dose Admin Ondansetron HCl 4 mg Q4HP PRN IV 02/28/25 18:45 Enoxaparin Sodium 40 mg DAILY SC 03/01/25 10:00 03/02/25 09:20 40 MG Morphine Sulfate 2 mg Q4HPRN PRN IV 02/28/25 18:45 Pantoprazole Sodium 40 mg DAILY@0600 PO 03/01/25 06:00 03/02/25 05:57 40 MG Fluconazole 200 mg DAILY PO 03/02/25 10:00 03/02/25 09:20 200 MG Ceftriaxone Sodium 50 ml @ 100 mls/hr DAILY@09 IV 03/03/25 09:00 Doxycycline Monohydrate 100 mg Q12HR PO 03/02/25 22:00 Examination General: Patient alert and oriented in person, place and time. Patient following commands. HEENT: Normocephalic, atraumatic, moist mucous membranes Respiratory/pulmonary: Clear lungs bilaterally, vesicular murmurs present in almost all lung gaitan, no associated crackles or wheezes. Cardiovascular: Normal heart sounds S1 and S2 with no associated murmurs Abdomen: Abdomen nondistended, there is no pain to palpation in any of the abdominal quadrants, no palpable masses. Extremities: Left knee inferior surface demarcated: Erythema reduced from baseline. Left distal lower extremity: Purple dusky discoloration, thickening of skin, grade 1 pitting edema. White flakes on bilateral lower feet including between the webs. Skin: No rashes or pruritus, there is no sacral edema present at this time. Neurological: Intact cranial nerves with no focal neurologic deficits laboratory and microbiology Laboratory Tests 03/02/25 04:25 Test 03/02/25 04:25 Range/Units Serum Glucose 133 H 74-106 mg/dL Microbiology Date/Time Source Procedure Growth Status 02/28/25 23:34 Nose MRSA Screen - Final Complete Problem List/Assessment/Plan Problem List/Assessment/Plan Left tabwl-qza-hrwz Cellulitis Tenia pedis bilateral feet History of recurrent left leg cellulitis Osteochondroma of posterior tibial metadiaphysis Obesity class [address] from January 2025 shows prominent bony exostosis off the posterior aspect of the proximal tibia measuring 4.4 cm length 1.5 cm AP, 2.4 cm in transverse dimension. dimension. This may be compressing the posterior vascular structures. MRI from the same time revealed Osteochondroma at the posterior aspect of the proximal tibial metadiaphysis. No significant thickening of the cartilaginous cap to suggest malignant transformation. Lower extremity arterial duplex showed no stenosis, minimal plaque Chest x-ray shows no acute cardiopulmonary abnormality HIV, hepatic panel, MRSA, influenza, COVID serology negative JARRET fungal, blood culture, wound culture ordered, Drug screen pending CT left leg shows hmtg-ao-bfuieniu subcutaneous edema. No collection/gas. Supportive management with IV NS bolus and maintenance, morphine, Zofran Switched IV vancomycin, cefepime to IV ceftriaxone, oral doxycycline Continue oral fluconazole 200 mg daily Wound care consulted DVT ruled out Doppler ultrasound ruled out DVT DIET: Regular DVT PROPHYLAXIS: Lovenox GI PROPHYLAXIS: Protonix CODE STATUS: Goals of care discussed with patient at bedside for more than 16 minutes. Full code DISPOSITION: Med/surge This medical document was created using an electronic medical record system with [employer] direct computerized dictation system. Although this document has been carefully reviewed, there may still be some phonetic and typographical errors. These areas are purely typographical due to imperfections of the software programs, and do not reflect any compromise in the patient's medical care. Patient's status and plan discussed with the patient. Case discussed with Dr. Wang Plan discussed with: Patient, Other (Nurses) My Orders My Orders Orders - ALLEN LAGUERRE RESIDENT Procedure Category Date Status Time Jarret Fungal HERBERT 02/28/25 Logged 18:56 Ceftriaxone 1gm/50ml PHA 03/03/25 In Process (Rocephin) 09:00 Doxycycline Tablet PHA 03/02/25 In Process (Vibramycin Tablet) 22:00 Insert Midline ORDERS 03/02/25 Transmitted 10:33 * Transportation Analyst CONS 03/02/25 Transmitted Consult Dietary Evaluation Review Comments: 1. Check A1C 2. CCHO-60 diet for avoiding hyperglycemia 3. Calos BID sabrina wound healing 4. Wt management upon D/C Expected Outcomes/Goals: gradual wt loss controlled glood glucose Date of Service: Mar 02, 2025 Billing Provider: BENNIE WANG MD Common Visit Codes: [id number] INP/OBS CARE(HIGH) ALLEN LAGUERRE RESIDENT Mar 02, 2025 16:34 BENNIE WANG MD Mar 05, 2025 20:49
[2025-03-02] MEDS: DOXYCYCLINE 100 MG TAB/CAP PO SCH (21:31)
[2025-03-03 01:00] VITALS: BP 140/83; PULSE 71; RESP 17; TEMP 97.6; O2SAT 97
[2025-03-03 05:00] VITALS: BP 123/82; PULSE 73; RESP 16; TEMP 97.5; O2SAT 96
[2025-03-03 06:56] LABS: Hematocrit 43.0 % (41.0-53.0); Hemoglobin 15.6 g/dL (13.5-17.5); Mean Corpuscular Hemoglobin 32.3 pg (28.0-32.0); Mean Corpuscular Volume 89.1 fL (80.0-100.0); Nucleated Red Blood Cells % 0.0 %
[2025-03-03 07:00] LABS: Chloride 105 mmol/L (98-107); Potassium 4.0 mmol/L (3.5-5.1); Sodium 140 mmol/L (136-145)
[2025-03-03 07:01] LABS: Anion Gap 9 (5-15); Carbon Dioxide 26 mmol/L (20-31)
[2025-03-03 07:02] LABS: Calcium 9.1 mg/dL (8.7-10.4)
[2025-03-03 07:07] LABS: BUN/Creatinine Ratio 10.3 (10.0-20.0)
[2025-03-03 07:09] LABS: Blood Urea Nitrogen 8 mg/dL (9-23); Glucose 122 mg/dL (74-106)
[2025-03-03 09:00] VITALS: BP 143/106; PULSE 76; RESP 20; TEMP 98; O2SAT 99
[2025-03-03 13:00] VITALS: BP 140/99; PULSE 65; RESP 20; TEMP 99; O2SAT 99
--- NOTE | 2025-03-03 15:37 | DVHPNRES ---
Progress Note Date Seen: Mar 03, 2025 Resident Creating Document: ALLEN LAGUERRE RESIDENT Medical Necessity Reason Pt with a Central, PICC or Fol: No Subjective Review of Systems History on arrival: This is a 39-year-old male with past medical history of recurrent left leg cellulitis, osteochondroma of posterior tibial metadiaphysis, presented to the ER with chief complain of recurrence of left leg cellulitis. Patient complained of erythema and swelling ujins-tod-jtwc, which started yesterday. The erythema and swelling was preceded by complain of flu-like symptoms, patient complained of generalized weakness, subjective fever and chills 2 days back. He had no fever when he measured the temperature. He also complains of chronic left lower leg discoloration that has remained unchanged and is associated with increased sensitivity to pain in the left lower extremity. 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 He denies pain in affected extremity, scratching, consumption of raw seafood, travel outside the country. Previous hospitalization: In January 2025 for cellulitis, he was sent home with p.o. clindamycin course for 10 days which was reportedly completed. PMHx: Recurrent cellulitis, osteochondroma or posterior tibial metadiaphysis PSHx: Left hand tendon repair Family history: Breast cancer and colon cancer in mother Social history: Alcohol consumption, last used on Wednesday 3 beers, uses marijuana to help with sleep. Denies smoking. No other drug use reported. Home medication: As needed Tylenol for flu-like symptoms Allergic history: No known allergies ROS: Constitutional: Generalized weakness, chills. Denies weight loss. HEENT: Denies changes in vision and hearing. Respiratory: Denies shortness of breath and cough Cardiovascular: Denies chest discomfort or palpitations GI: Denies abdominal pain, nausea, vomiting and diarrhea. : Denies dysuria and urinary frequency. Musculoskeletal: Erythema, swelling of left leg sepnp-kzg-llgk, chronic discoloration of the left lower extremity Skin: Denies rash and pruritus. Neurological: Denies dizziness, headache, vision or hearing problems 02/28/2025: Patient is in visible distress and is admitted for further evaluation and management. 03/01/2025: No new complaints, cellulitis area demarcated with black marker for monitoring. Continue IV antibiotics. 03/02/2025: No new complaints. IV antibiotics switch to ceftriaxone, started on oral doxycycline. 03/03/2025: Patient was seen at bedside today. No new complaints. Objective vital signs Vital Sign Date Time Temp Pulse Resp B/P (MAP) Pulse Ox O2 Delivery O2 Flow Rate FiO2 03/03/25 13:00 99.0 65 20 140/99 (113) 99 99.0 03/03/25 08:30 Room Air* 0 21 Total Intake and Output 03/02/25 03/02/25 03/03/25 15:00 23:00 07:00 Intake Total 380 ml 800 ml 300 ml Balance 380 ml 800 ml 300 ml medications Current Medications Medications Dose Ordered Sig/Leslie Route Start Time Stop Time Status Last Admin Dose Admin Ondansetron HCl 4 mg Q4HP PRN IV 02/28/25 18:45 Enoxaparin Sodium 40 mg DAILY SC 03/01/25 10:00 03/03/25 10:06 40 MG Morphine Sulfate 2 mg Q4HPRN PRN IV 02/28/25 18:45 Pantoprazole Sodium 40 mg DAILY@0600 PO 03/01/25 06:00 03/03/25 05:13 40 MG Fluconazole 200 mg DAILY PO 03/02/25 10:00 03/03/25 09:00 200 MG Ceftriaxone Sodium 50 ml @ 100 mls/hr DAILY@09 IV 03/03/25 09:00 03/03/25 09:00 100 MLS/HR Doxycycline Monohydrate 100 mg Q12HR PO 03/02/25 22:00 03/03/25 09:00 100 MG Examination General: Patient alert and oriented in person, place and time. Patient following commands. HEENT: Normocephalic, atraumatic, moist mucous membranes Respiratory/pulmonary: Clear lungs bilaterally, vesicular murmurs present in almost all lung gaitan, no associated crackles or wheezes. Cardiovascular: Normal heart sounds S1 and S2 with no associated murmurs Abdomen: Abdomen nondistended, there is no pain to palpation in any of the abdominal quadrants, no palpable masses. Extremities: Left knee inferior surface demarcated: Erythema has been progressively reducing. Left distal lower extremity: Purple dusky discoloration, thickening of skin, grade 1 pitting edema. White flakes on bilateral lower feet including between the webs. Skin: No rashes or pruritus, there is no sacral edema present at this time. Neurological: Intact cranial nerves with no focal neurologic deficits laboratory and microbiology Laboratory Tests 03/03/25 06:33 Test 03/03/25 06:33 Range/Units Serum Glucose 122 H 74-106 mg/dL Microbiology Date/Time Source Procedure Growth Status 02/28/25 23:34 Nose MRSA Screen - Final Complete Problem List/Assessment/Plan Problem List/Assessment/Plan Left omvnm-yow-hucx Cellulitis Tenia pedis bilateral feet History of recurrent left leg cellulitis Osteochondroma of posterior tibial metadiaphysis Obesity class [address] from January 2025 shows prominent bony exostosis off the posterior aspect of the proximal tibia measuring 4.4 cm length 1.5 cm AP, 2.4 cm in transverse dimension. dimension. This may be compressing the posterior vascular structures. MRI from the same time revealed Osteochondroma at the posterior aspect of the proximal tibial metadiaphysis. No significant thickening of the cartilaginous cap to suggest malignant transformation. Lower extremity arterial duplex showed no stenosis, minimal plaque Chest x-ray shows no acute cardiopulmonary abnormality HIV, hepatic panel, MRSA, influenza, COVID serology negative JARRET fungal, blood culture, wound culture, UDS pending CT left leg shows cmex-do-cdflnzqx subcutaneous edema. No collection/gas. Supportive management with IV NS bolus and maintenance, morphine, Zofran Stopped IV vancomycin, cefepime. Continue IV ceftriaxone, oral doxycycline Continue oral fluconazole 200 mg daily Wound care consulted Patient will require longer course of IV antibiotics, midline placed; student financial services counselor consulted for home health DVT ruled out Doppler ultrasound ruled out DVT DIET: Regular DVT PROPHYLAXIS: Lovenox GI PROPHYLAXIS: Protonix CODE STATUS: Goals of care discussed with patient at bedside for more than 16 minutes. Full code DISPOSITION: Med/surge This medical document was created using an electronic medical record system with [employer] direct computerized dictation system. Although this document has been carefully reviewed, there may still be some phonetic and typographical errors. These areas are purely typographical due to imperfections of the software programs, and do not reflect any compromise in the patient's medical care. Patient's status and plan discussed with the patient. Case discussed with Dr. Wang Plan discussed with: Patient, Other (Nurses) Dietary Evaluation Review Comments: 1. Check A1C 2. CCHO-60 diet for avoiding hyperglycemia 3. Calos BID sabrina wound healing 4. Wt management upon D/C Expected Outcomes/Goals: gradual wt loss controlled glood glucose Date of Service: Mar 03, 2025 Billing Provider: BENNIE WANG MD Common Visit Codes: [id number] INP/OBS CARE(HIGH) ALLEN LAGUERRE RESIDENT Mar 03, 2025 15:37 BENNIE WANG MD Mar 05, 2025 20:50
[2025-03-03 17:00] VITALS: BP 145/93; PULSE 80; RESP 20; TEMP 98.4; O2SAT 99
[2025-03-03 21:00] VITALS: BP 127/69; PULSE 73; RESP 16; TEMP 97.4; O2SAT 99
[2025-03-04] VITALS (7 sets, daily range): BP systolic 120–141; BP diastolic 79–92; PULSE 80–89; RESP 16–20; TEMP 36.8; O2SAT 95–99
--- NOTE | 2025-03-04 14:11 | DVHPNRES ---
Progress Note Date Seen: Mar 04, 2025 Resident Creating Document: YINKA WINTERS RESIDENT Medical Necessity Reason Pt with a Central, PICC or Fol: No Subjective Review of Systems Patient seen at bedside. No new complaints. Home health for IV antibiotics pending. This is a 39-year-old male with past medical history of recurrent left leg cellulitis, osteochondroma of posterior tibial metadiaphysis, presented to the ER with chief complain of recurrence of left leg cellulitis. Patient complained of erythema and swelling sdpyq-bjw-aput, which started yesterday. The erythema and swelling was preceded by complain of flu-like symptoms, patient complained of generalized weakness, subjective fever and chills 2 days back. He had no fever when he measured the temperature. He also complains of chronic left lower leg discoloration that has remained unchanged and is associated with increased sensitivity to pain in the left lower extremity. 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. He denies pain in affected extremity, scratching, consumption of raw seafood, travel outside the country. Previous hospitalization: In January 2025 for cellulitis, he was sent home with p.o. clindamycin course for 10 days which was reportedly completed. PMHx: Recurrent cellulitis, osteochondroma or posterior tibial metadiaphysis PSHx: Left hand tendon repair Family history: Breast cancer and colon cancer in mother Social history: Alcohol consumption, last used on Wednesday 3 beers, uses marijuana to help with sleep. Denies smoking. No other drug use reported. Home medication: As needed Tylenol for flu-like symptoms Allergic history: No known allergies ROS: Constitutional: Generalized weakness, chills. Denies weight loss. HEENT: Denies changes in vision and hearing. Respiratory: Denies shortness of breath and cough Cardiovascular: Denies chest discomfort or palpitations GI: Denies abdominal pain, nausea, vomiting and diarrhea. : Denies dysuria and urinary frequency. Musculoskeletal: Erythema, swelling of left leg xiuvs-qca-hzvi, chronic discoloration of the left lower extremity Skin: Denies rash and pruritus. Neurological: Denies dizziness, headache, vision or hearing problems Objective vital signs Vital Sign Date Time Temp Pulse Resp B/P (MAP) Pulse Ox O2 Delivery O2 Flow Rate FiO2 03/04/25 09:00 98.0 89 20 133/91 (105) 99 98.0 03/03/25 20:00 Room Air* 0 21 Total Intake and Output 03/03/25 03/03/25 03/04/25 15:00 23:00 07:00 Intake Total 348 ml 600 ml 500 ml Balance 348 ml 600 ml 500 ml medications Current Medications Medications Dose Ordered Sig/Leslie Route Start Time Stop Time Status Last Admin Dose Admin Ondansetron HCl 4 mg Q4HP PRN IV 02/28/25 18:45 Enoxaparin Sodium 40 mg DAILY SC 03/01/25 10:00 03/04/25 10:19 40 MG Morphine Sulfate 2 mg Q4HPRN PRN IV 02/28/25 18:45 Pantoprazole Sodium 40 mg DAILY@0600 PO 03/01/25 06:00 03/04/25 05:02 40 MG Fluconazole 200 mg DAILY PO 03/02/25 10:00 03/04/25 10:19 200 MG Ceftriaxone Sodium 50 ml @ 100 mls/hr DAILY@09 IV 03/03/25 09:00 03/04/25 10:19 100 MLS/HR Doxycycline Monohydrate 100 mg Q12HR PO 03/02/25 22:00 03/04/25 10:19 100 MG Examination General: Patient alert and oriented in person, place and time. Patient following commands. HEENT: Normocephalic, atraumatic, moist mucous membranes Respiratory/pulmonary: Clear lungs bilaterally, vesicular murmurs present in almost all lung gaitan, no associated crackles or wheezes. Cardiovascular: Normal heart sounds S1 and S2 with no associated murmurs Abdomen: Abdomen nondistended, there is no pain to palpation in any of the abdominal quadrants, no palpable masses. Extremities: Left knee inferior surface demarcated: Erythema has been progressively reducing. Left distal lower extremity: Purple dusky discoloration, thickening of skin, grade 1 pitting edema. White flakes on bilateral lower feet including between the webs. Skin: No rashes or pruritus, there is no sacral edema present at this time. Neurological: Intact cranial nerves with no focal neurologic deficits laboratory and microbiology Laboratory Tests 03/03/25 06:33 Test 03/03/25 06:33 Range/Units Serum Glucose 122 H 74-106 mg/dL Microbiology Date/Time Source Procedure Growth Status 03/03/25 10:37 Blood Blood Culture - Preliminary NO GROWTH AFTER 24 HOURS OF INCUBATION. Resulted 02/28/25 23:34 Nose MRSA Screen - Final Complete Problem List/Assessment/Plan Problem List/Assessment/Plan Assessment and plan Left odzpw-eeq-oiqz Cellulitis Tenia pedis bilateral feet History of recurrent left leg cellulitis Osteochondroma of posterior tibial metadiaphysis Obesity class [address] from January 2025 shows prominent bony exostosis off the posterior aspect of the proximal tibia measuring 4.4 cm length 1.5 cm AP, 2.4 cm in transverse dimension. dimension. This may be compressing the posterior vascular structures. MRI from the same time revealed Osteochondroma at the posterior aspect of the proximal tibial metadiaphysis. No significant thickening of the cartilaginous cap to suggest malignant transformation. Lower extremity arterial duplex showed no stenosis, minimal plaque Chest x-ray shows no acute cardiopulmonary abnormality HIV, hepatic panel, MRSA, influenza, COVID serology negative JARRET fungal, blood culture, wound culture, UDS pending CT left leg shows skay-yo-rxvgtyed subcutaneous edema. No collection/gas. Supportive management with IV NS bolus and maintenance, morphine, Zofran Stopped IV vancomycin, cefepime. Continue IV ceftriaxone, oral doxycycline Continue oral fluconazole 200 mg daily Wound care consulted Patient will require longer course of IV antibiotics, midline placed; support services rep consulted for home health DVT ruled out Doppler ultrasound ruled out DVT DIET: Regular DVT PROPHYLAXIS: Lovenox GI PROPHYLAXIS: Protonix CODE STATUS: Goals of care discussed with patient at bedside for more than 16 minutes. Full code DISPOSITION: Med/surge Case discussed with Dr. Wang Plan discussed with: Patient My Orders My Orders Orders - YINKA WINTERS Procedure Category Date Status Time Complete Blood Count LAB 03/05/25 Verified 04:00 Comprehensive LAB 03/05/25 Verified Metabolic Panel 04:00 Dietary Evaluation Review Comments: 1. Check A1C 2. CCHO-60 diet for avoiding hyperglycemia 3. Calos BID sabrina wound healing 4. Wt management upon D/C Expected Outcomes/Goals: gradual wt loss controlled glood glucose Date of Service: Mar 04, 2025 Billing Provider: BENNIE WANG MD Common Visit Codes: NOT BILLABLE YINKA WINTERS Mar 04, 2025 14:11 BENNIE WANG MD Mar 05, 2025 20:50
--- NOTE | 2025-03-04 16:19 | DVHDSRES ---
Discharge Summary Date of Admission Resident Creating Document: YINKA WINTERS RESIDENT Feb 28, 2025 at 18:45 Date of Discharge: Mar 04, 2025 Labs/Diagnostic Data: Laboratory Results Test 03/03/25 06:33 03/01/25 05:40 02/28/25 20:30 02/28/25 20:24 White Blood Count 9.5 10^3/uL (4.4-10.8) Red Blood Count 4.83 10^6/uL (4.5-5.90) Hemoglobin 15.6 g/dL (13.5-17.5) Hematocrit 43.0 % (41.0-53.0) Mean Corpuscular Volume 89.1 fL (80.0-100.0) Mean Corpuscular Hemoglobin 32.3 pg (28.0-32.0) Mean Corpuscular Hemoglobin Concent 36.2 g/dL (32.0-36.0) Red Cell Distribution Width 13.4 % (11.8-14.3) Platelet Count 242 10^3/uL (140-450) Mean Platelet Volume 9.4 fL (6.9-10.8) Neutrophils (%) (Auto) 64.2 % (37.0-80.0) Lymphocytes (%) (Auto) 22.4 % (10.0-50.0) Monocytes (%) (Auto) 8.1 % (0.0-12.0) Eosinophils (%) (Auto) 4.6 % (0.0-7.0) Basophils (%) (Auto) 0.7 % (0.0-2.0) Neutrophils # (Auto) 6.1 10 ^3/uL (1.6-8.6) Lymphocytes # (Auto) 2.1 10 ^3/uL (0.4-5.4) Monocytes # (Auto) 0.8 10 ^3/uL (0-1.3) Eosinophils # (Auto) 0.4 10 ^3/uL (0-0.8) Basophils # (Auto) 0.1 10 ^3/uL (0-0.2) Nucleated Red Blood Cells 0.0 % Sodium Level 140 mmol/L (136-145) Potassium Level 4.0 mmol/L (3.5-5.1) Chloride Level 105 mmol/L (98-107) Carbon Dioxide Level 26 mmol/L (20-31) Anion Gap 9 (5-15) Blood Urea Nitrogen 8 mg/dL (9-23) Creatinine 0.78 mg/dL (0.700-1.30) Glomerular Filtration Rate Calc 116 mL/min (>90) BUN/Creatinine Ratio 10.3 (10.0-20.0) Serum Glucose 122 mg/dL (74-106) Calcium Level 9.1 mg/dL (8.7-10.4) Total Bilirubin 0.4 mg/dL (0.2-1.0) Aspartate Amino Transferase (AST) 18 U/L (13-40) Alanine Aminotransferase (ALT) 42 U/L (7-40) Alkaline Phosphatase 70 U/L (46-116) Total Protein 7.2 g/dL (5.7-8.2) Albumin 4.1 g/dL (3.2-4.8) Random Vancomycin Level 8.0 ug/mL (5-10) Lactic Acid Level 1.2 mmol/L (0.4-2.0) Influenza Type A Antigen Negative (Negative) Influenza Type B Antigen Negative (Negative) SARS-CoV-2 Antigen (Rapid) Negative (NEGATIVE) Test 02/28/25 19:41 02/28/25 16:02 02/28/25 13:26 HIV (1&2) Antibody Negative (Negative) Urine Color Yellow (Yellow) Urine Clarity Clear (Clear) Urine pH 6.5 (5.0-9.0) Urine Specific [place] 1.032 (1.001-1.035) Urine Protein 1+ (Negative) Urine Ketones Negative (Negative) Urine Blood Negative /uL (Negative) Urine Nitrite Negative (Negative) Urine Bilirubin Negative (Negative) Urine Urobilinogen 4 mg/dL (Negative) Urine Leukocyte Esterase Negative /uL (Negative) Urine RBC 2 /hpf (0 - 3) Urine Microscopic WBC < 1 /HPF (0-3) Urine Squamous Epithelial Cells Few /hpf (<5) Urine Bacteria None seen /hpf (None Seen) Urine Glucose 1+ mg/dL (Normal) Direct Bilirubin 0.2 mg/dL (<0.3) B-Type Natriuretic Peptide 16.83 pg/mL (0-100) Other Laboratory Tests 03/03/25 06:33 Brief Hx & Hospital Course: This is a 39-year-old male with past medical history of recurrent left leg cellulitis, osteochondroma of posterior tibial metadiaphysis, presented to the ER with chief complain of recurrence of left leg cellulitis. Patient complained of erythema and swelling [id number], which started yesterday. The erythema and swelling was preceded by complain of flu-like symptoms, patient complained of generalized weakness, subjective fever and chills 2 days back. He had no fever when he measured the temperature. He also complains of chronic left lower leg discoloration that has remained unchanged and is associated with increased sensitivity to pain in the left lower extremity. 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 He denies pain in affected extremity, scratching, consumption of raw seafood, travel outside the country. The patient's WBC was elevated, blood cultures came back negative, MRSA nares was negative. CT of the leg showed [id number] subcutaneous edema in left lower limb and prominent osteochondral of the posterior proximal tibial metadiaphysis Final Diagnosis/Problems List Left leg cellulitis Discharge Disposition: Home with Health Services Discharge Instruct/Medications Diet: Regular Activity: No Restrictions, As Tolerated Follow Up/Referral: F/u with PCP in 7 days Medications: Ceftriaxone 1 gm iv for 2 weeks Scheduled Amoxicillin & Pot Clavulanate (Augmentin Tablet), 875 MG PO BID Clindamycin Hcl (Clindamycin Hcl), 1 CAP PO TID Doxycycline (Monohydrate) (Doxycycline), 100 MG PO BID Discharge Statement: "Patient was advised to return to the ER or call 911 if any headaches, dizziness, shortness of breath, chest pain, abdominal pain, bleeding, fevers, or worsening of medical condition. Patient was counseled about treatment plan, medications, possible side effects, patientverbalized understanding. All questions were answered to the best of my ability. This discharge took greater then 30 minutes in planning, reviewing documentation, counseling the patient, and discussing with other team members." ASSESSMENT ASSESSMENT Assessment Left leg cellulitis YINKA WINTERS RESIDENT Mar 04, 2025 16:19
--- NOTE | 2025-03-04 16:25 | DVHDSRES ---
Discharge Summary Date of Admission Resident Creating Document: YINKA WINTERS RESIDENT Feb 28, 2025 at 18:45 Date of Discharge: Mar 04, 2025 Labs/Diagnostic Data: Laboratory Results Test 03/03/25 06:33 03/01/25 05:40 02/28/25 20:30 02/28/25 20:24 White Blood Count 9.5 10^3/uL (4.4-10.8) Red Blood Count 4.83 10^6/uL (4.5-5.90) Hemoglobin 15.6 g/dL (13.5-17.5) Hematocrit 43.0 % (41.0-53.0) Mean Corpuscular Volume 89.1 fL (80.0-100.0) Mean Corpuscular Hemoglobin 32.3 pg (28.0-32.0) Mean Corpuscular Hemoglobin Concent 36.2 g/dL (32.0-36.0) Red Cell Distribution Width 13.4 % (11.8-14.3) Platelet Count 242 10^3/uL (140-450) Mean Platelet Volume 9.4 fL (6.9-10.8) Neutrophils (%) (Auto) 64.2 % (37.0-80.0) Lymphocytes (%) (Auto) 22.4 % (10.0-50.0) Monocytes (%) (Auto) 8.1 % (0.0-12.0) Eosinophils (%) (Auto) 4.6 % (0.0-7.0) Basophils (%) (Auto) 0.7 % (0.0-2.0) Neutrophils # (Auto) 6.1 10 ^3/uL (1.6-8.6) Lymphocytes # (Auto) 2.1 10 ^3/uL (0.4-5.4) Monocytes # (Auto) 0.8 10 ^3/uL (0-1.3) Eosinophils # (Auto) 0.4 10 ^3/uL (0-0.8) Basophils # (Auto) 0.1 10 ^3/uL (0-0.2) Nucleated Red Blood Cells 0.0 % Sodium Level 140 mmol/L (136-145) Potassium Level 4.0 mmol/L (3.5-5.1) Chloride Level 105 mmol/L (98-107) Carbon Dioxide Level 26 mmol/L (20-31) Anion Gap 9 (5-15) Blood Urea Nitrogen 8 mg/dL (9-23) Creatinine 0.78 mg/dL (0.700-1.30) Glomerular Filtration Rate Calc 116 mL/min (>90) BUN/Creatinine Ratio 10.3 (10.0-20.0) Serum Glucose 122 mg/dL (74-106) Calcium Level 9.1 mg/dL (8.7-10.4) Total Bilirubin 0.4 mg/dL (0.2-1.0) Aspartate Amino Transferase (AST) 18 U/L (13-40) Alanine Aminotransferase (ALT) 42 U/L (7-40) Alkaline Phosphatase 70 U/L (46-116) Total Protein 7.2 g/dL (5.7-8.2) Albumin 4.1 g/dL (3.2-4.8) Random Vancomycin Level 8.0 ug/mL (5-10) Lactic Acid Level 1.2 mmol/L (0.4-2.0) Influenza Type A Antigen Negative (Negative) Influenza Type B Antigen Negative (Negative) SARS-CoV-2 Antigen (Rapid) Negative (NEGATIVE) Test 02/28/25 19:41 02/28/25 16:02 02/28/25 13:26 HIV (1&2) Antibody Negative (Negative) Urine Color Yellow (Yellow) Urine Clarity Clear (Clear) Urine pH 6.5 (5.0-9.0) Urine Specific [place] 1.032 (1.001-1.035) Urine Protein 1+ (Negative) Urine Ketones Negative (Negative) Urine Blood Negative /uL (Negative) Urine Nitrite Negative (Negative) Urine Bilirubin Negative (Negative) Urine Urobilinogen 4 mg/dL (Negative) Urine Leukocyte Esterase Negative /uL (Negative) Urine RBC 2 /hpf (0 - 3) Urine Microscopic WBC < 1 /HPF (0-3) Urine Squamous Epithelial Cells Few /hpf (<5) Urine Bacteria None seen /hpf (None Seen) Urine Glucose 1+ mg/dL (Normal) Direct Bilirubin 0.2 mg/dL (<0.3) B-Type Natriuretic Peptide 16.83 pg/mL (0-100) Other Laboratory Tests 03/03/25 06:33 Brief Hx & Hospital Course: This is a 39-year-old male with past medical history of recurrent left leg cellulitis, osteochondroma of posterior tibial metadiaphysis, presented to the ER with chief complain of recurrence of left leg cellulitis. Patient complained of erythema and swelling [id number], which started yesterday. The erythema and swelling was preceded by complain of flu-like symptoms, patient complained of generalized weakness, subjective fever and chills 2 days back. He had no fever when he measured the temperature. He also complains of chronic left lower leg discoloration that has remained unchanged and is associated with increased sensitivity to pain in the left lower extremity. 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 He denies pain in affected extremity, scratching, consumption of raw seafood, travel outside the country. patient was treated with ceftriaxone, doxycycline and fluconazole. During the course of the hospitalization, the patient improved clinically and hence is being discharged. Condition at Discharge: Fair Final Diagnosis/Problems List Left [id number] Cellulitis Tenia pedis bilateral feet History of recurrent left leg cellulitis Osteochondroma of posterior tibial metadiaphysis Obesity class 2 DVT ruled out Discharge Disposition: Home with Health Services Discharge Instruct/Medications Diet: Regular Activity: No Restrictions, As Tolerated Follow Up/Referral: F/u with PCP in 7 days Medications: Ceftriaxone 1 gm iv for 2 weeks Scheduled Doxycycline (Monohydrate) (Doxycycline), 100 MG PO BID Discontinued Medications Amoxicillin & Pot Clavulanate (Augmentin Tablet), 875 MG PO BID Clindamycin Hcl (Clindamycin Hcl), 1 CAP PO TID Discharge Statement: "Patient was advised to return to the ER or call 911 if any headaches, dizziness, shortness of breath, chest pain, abdominal pain, bleeding, fevers, or worsening of medical condition. Patient was counseled about treatment plan, medications, possible side effects, patientverbalized understanding. All questions were answered to the best of my ability. This discharge took greater then 30 minutes in planning, reviewing documentation, counseling the patient, and discussing with other team members." ASSESSMENT ASSESSMENT Assessment Left leg cellulitis Date of Service: Mar 04, 2025 Billing Provider: BENNIE HUMMEL MD Common Visit Codes: 19993-OGN/OBS DISCH DAY >30min YINKA WINTERS RESIDENT Mar 04, 2025 16:25 BENNIE HUMMEL MD Mar 05, 2025 20:50
== END 2025-03-04 18:45 | disposition home health service (06) | DRG 383 ==
LOC: ER 12:52 → OVERFLOW 18:45 → WEST WING 22:03
PROVIDERS: ADMIT Internal Medicine Geriatric Medicine; ATTEND Internal Medicine Geriatric Medicine
PROC: 05HC33Z Insertion of Infusion Device into Left Basilic Vein, Percutaneous Approach (ICD-10-PCS; principal; 2025-03-02)
PROC: B54NZZA Ultrasonography of Left Upper Extremity Veins, Guidance (ICD-10-PCS; 2025-03-02)
DX: L03.116 Cellulitis of left lower limb (principal); B35.3 Tinea pedis; D16.22 Benign neoplasm of long bones of left lower limb; E66.812 Obesity, class 2; D72.829 Elevated white blood cell count, unspecified; Z20.822 Contact with and (suspected) exposure to COVID-19; Z80.3 Family history of malignant neoplasm of breast; Z80.0 Family history of malignant neoplasm of digestive organs; Z68.39 Body mass index [BMI] 39.0-39.9, adult
CPT/HCPCS: 36415; 71045; 73700; 80048; 80053; 80076; 80202; 81001; 83605; 83880; 85025; 86703; 87040; 87081; 87426; 87804; 93926; 93971; 96361; 96365; 96368; G0378; J3490